=== PATIENT | male | born 1985 | race Caucasian/White ===

== ENCOUNTER 2025-07-15 22:42 | Emergency (ER) | payer OTHER, SELFPAY ==
[2025-07-15 22:43] VITALS: BP 155/80; PULSE 84; RESP 18; TEMP 36.8; O2SAT 99
[2025-07-15 22:58] VITALS: BMI 42.3
--- NOTE | 2025-07-15 23:00 | RAD_ITS ---
PROCEDURE: RAD/Tibia & Fibula 2 Views
--- NOTE | 2025-07-15 23:00 | RAD_ITS ---
PROCEDURE: RAD/Femur Min 2 Views
--- NOTE | 2025-07-15 23:06 | RAD_ITS ---
PROCEDURE: RAD/Femur Min 2 Views
--- NOTE | 2025-07-15 23:07 | RAD_ITS ---
PROCEDURE: RAD/Tibia & Fibula 2 Views
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
[2025-07-15] MEDS: Ketorolac 30 MG/ML Syringe IM (23:34)
[2025-07-16 00:32] VITALS: BP 148/60; PULSE 84; RESP 18; TEMP 36.8; O2SAT 99
== END 2025-07-16 00:33 | disposition home or self-care (01) ==
PROVIDERS: Emergency Provider Specialist/Technologist Athletic Trainer; PCP Family Medicine; Visit Provider Specialist/Technologist Athletic Trainer
DX: S70.12XA Contusion of left thigh, initial encounter (principal); S70.11XA Contusion of right thigh, initial encounter; S80.12XA Contusion of left lower leg, initial encounter; S80.11XA Contusion of right lower leg, initial encounter; V48.2XXA Person on outside of car injured in noncollision transport accident in nontraffic accident, initial encounter; Y93.89 Activity, other specified; Y92.481 Parking lot as the place of occurrence of the external cause; Z87.891 Personal history of nicotine dependence
CPT/HCPCS: 73552; 73590; 96372; 99282

== ENCOUNTER 2025-07-17 18:03 | Emergency (ER) | payer OTHER, SELFPAY ==
[2025-07-17 18:04] VITALS: BP 167/97; PULSE 78; RESP 18; TEMP 35.7; O2SAT 100; BMI 43.0
--- NOTE | 2025-07-17 18:52 | CT_ITS ---
PROCEDURE: CT/Spine Lumbar without Contrast
[2025-07-17 20:09] VITALS: BP 152/71; PULSE 65; RESP 18; TEMP 36.9; O2SAT 97
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
== END 2025-07-17 20:40 | disposition home or self-care (01) ==
PROVIDERS: Emergency Provider Emergency Medicine; PCP Family Medicine; Visit Provider Emergency Medicine
DX: S39.012A Strain of muscle, fascia and tendon of lower back, initial encounter (principal); S30.0XXA Contusion of lower back and pelvis, initial encounter; V48.2XXA Person on outside of car injured in noncollision transport accident in nontraffic accident, initial encounter; G47.30 Sleep apnea, unspecified; K21.9 Gastro-esophageal reflux disease without esophagitis; Z87.891 Personal history of nicotine dependence
CPT/HCPCS: 72131; 99282

== ENCOUNTER 2025-08-02 20:37 | Emergency (ER) | payer OTHER, SELFPAY ==
[2025-08-02 20:37] VITALS: BP 178/119; PULSE 90; RESP 14; TEMP 36.8; O2SAT 97; BMI 42.3
[2025-08-02 21:16] LABS: Mucous, Urine 0 SEEN /hpf (<or=2+)
--- OUTSIDE RECORDS SUMMARY | 2025-08-02 21:26 | XMS RPT_ITS | CCD ---
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 I, HIGH SENSITIVITY on 02-03-2025 TROPONIN I, HIGH SENSITIVITY 4 pg/mL 0 - 20 pg/mL [facility] Comment on above: Indeterminant: >12 to 100 pg/mL female >20 to 100 pg/mL male Indicative of myocardial injury. Serial sampling is recommended, a change of greater than or equal to 20 pg/mL is indicative of acute coronary syndrome. [facility] TROPONIN I, HIGH SENSITIVITY 4 pg/mL Normal 0-20 [facility]3] Comment on above: Result Comment: Indeterminant: >12 to 100 pg/mL female >20 to 100 pg/mL male Indicative of myocardial injury. Serial sampling is recommended, a change of greater than or equal to 20 pg/mL is indicative of acute coronary syndrome. Performed By: #### T ROHS #### Testing performed at [facility] ([facility])[3] [address] [place] [address] XR CHEST PA AND LATERAL 2 EWSon 02-03-2025 XR CHEST PA AND LATERAL 2 VIEWS EXAM: XR CHEST PA AND LATERAL 2 VIEWS HISTORY: chest tightness COMPARISON: None. TECHNIQUE: Upright PA and lateral views. FINDINGS: The heart is slender. The trachea, mediastinal, and hilar appearance is thought to be satisfactory. Both lungs are relatively well aerated. There is some minor lobulation of the right hemidiaphragm. I do not see any specific infiltrate, edema, or pleural effusion. There is no pneumothorax, pulmonary nodularity, or mass. IMPRESSION: No acute chest finding is seen. Normal [facility]3] XR Chest PA and Lateralon IMPRESSION: No acute chest finding is seen. RADIOLOGY EXAM: XR CHEST PA AN D LATERAL 2 VIEWS HISTORY: chest tightness COMPARISON: None. TECHNIQUE: Upright PA and lateral views. FINDINGS: The heart is slender. The trachea, mediastinal, and hilar appearance is thought to be satisfactory. Both lungs are relatively well aerated. There is some minor lobulation of the right hemidiaphragm. I do not see any specific infiltrate, edema, or pleural effusion. There is no pneumothorax, pulmonary nodularity, or mass. RADIOLOGY Senia Dolan, - 02/03/2025 EXAM: XR CHEST PA AND LATERAL 2 VIEWS HISTORY: chest tightness COMPARISON: None. TECHNIQUE: Upright PA and lateral views. FINDINGS: The heart is slender. The trachea, mediastinal, and hilar appearance is thought to be satisfactory. Both lungs are relatively well aerated. There is some minor lobulation of the right hemidiaphragm. I do not see any specific infiltrate, edema, or pleural effusion. There is no pneumothorax, pulmonary nodularity, or mass. IMPRESSION IMPRESSION: No acute chest finding is seen. [facility] Radiology Study observation (narrative) [facility] XR Chest PA and LateralOrder ed By: Senia Dolan on 02-03-2025 [facility] MEDIUM JOINT/BURSA INJECTION AND/OR ASPIRATION: L ulnocarpalon 12-29-2024 Evelyn Salazar LP N 12/29/2024 4:33 PM MEDIUM JOINT/BURSA INJECTION AND/OR ASPIRATION: L ulnocarpal Date/Time: 12/29/2024 3:00 PM Performed by: Marcello Quiles MD Authorized by: Marcello Quiles MD Supporting Documentation Indications: pain Procedure Details: Location: wrist - L ulnocarpal Needle size: 25 G Approach: ulnar Medication Verification: I have personally verified and performed the final check of the medication(s) used in this procedure prior to administration. The following items were included during the verification process for medication(s) administered: drug name, strength, volume, expiration, physical integrity and appearance of the medication(s). Medications administered: 40 mg methylPREDNISolone acetate 40 MG/ML; 2 mL Lidocaine 10 mg/mL; 2 mL ROPivacaine 1 % Patient tolerance: patient tolerated the procedure well with no immediate complications Consent: Consent was obtained prior to the procedure after discussion of the risks, benefits and alternatives, and expected outcomes were discussed with the patient. The possibilities of reaction to medication, bleeding, infection, the need for additional procedures, failure to diagnosis a condition, and creating a complication requiring operation were discussed with the patient. The patient concurred with the proposed plan, giving consent. (Informed consent is obtained. Risks and benefits have been discussed. The patient understands and wishes to proceed. ) Preparation: Patient was prepped in the usual sterile fashion. The patient was prepped with alcohol. [facility] Radiology Study observation (narrative) [facility] MR Wrist - left WO contrasto n 10-09-2024 IMPRESSION: 1. No acute osseous abnormality of the left wrist. 2. Mild ulnar positive variance the left wrist. There is associated thinning of the radial aspect of the left trigonal fibrocartilage. There is fluid within the left distal radioulnar joint. The left dorsal and volar radioulnar ligaments are intact. 3. Intact left knee scapholunate and lunotriquetral ligaments. 4. Very trace tenosynovitis of the left second extensor compartment at the level of the distal radius. RADIOLOGY EXAM: MRI WRIST LEFT WITHOUT CONTRAST HISTORY: chronic left wrist pain, xrays negative . Left wrist pain. COMPARISON: Comparison made to left wrist radiographs dated 07/20/2023. TECHNIQUE: Multiplanar, multisequence imaging of the left wrist was performed without the administration of intravenous or intra-articular gadolinium contrast. FINDINGS: There is mild ulnar positive variance of the left wrist. There is no acute displaced fracture or dislocation of the left wrist. There is minimal left first carpometacarpal joint osteoarthritis. Bone marrow signal is normal. The scapholunate and lunotriquetral ligaments are intact. There is thinning of the radial aspect of the left triangular fibrocartilage. The dorsal and volar radioulnar ligaments are intact. There is fluid within the left distal radioulnar joint. The flexor tendons of the left wrist, including those intrinsic to and extrinsic to the carpal tunnel, are normal without tendinopathy, tenosynovitis, or tear. There is very trace tenosynovitis of the left second extensor compartment at the level of the distal radius. The remaining extensor compartments of the wrist are normal. The median nerve within the carpal tunnel and the ulnar nerve within the Guyon's canal are normal. [facility] - 10/09/[facility]24 EXAM: MRI WRIST LEFT WITHOUT CONTRAST HISTORY: chronic left wrist pain, xrays negative . Left wrist pain. COMPARISON: Comparison made to left wrist radiographs dated 07/20/2023. TECHNIQUE: Multiplanar, multisequence imaging of the left wrist was performed without the administration of intravenous or intra-articular gadolinium contrast. FINDINGS: There is mild ulnar positive variance of the left wrist. There is no acute displaced fracture or dislocation of the left wrist. There is minimal left first carpometacarpal joint osteoarthritis. Bone marrow signal is normal. The scapholunate and lunotriquetral ligaments are intact. There is thinning of the radial aspect of the left triangular fibrocartilage. The dorsal and volar radioulnar ligaments are intact. There is fluid within the left distal radioulnar joint. The flexor tendons of the left wrist, including those intrinsic to and extrinsic to the carpal tunnel, are normal without tendinopathy, tenosynovitis, or tear. There is very trace tenosynovitis of the left second extensor compartment at the level of the distal radius. The remaining extensor compartments of the wrist are normal. The median nerve within the carpal tunnel and the ulnar nerve within the Guyon's canal are normal. IMPRESSION IMPRESSION: 1. No acute osseous abnormality of the left wrist. 2. Mild ulnar positive variance the left wrist. There is associated thinning of the radial aspect of the left trigonal fibrocartilage. There is fluid within the left distal radioulnar joint. The left dorsal and volar radioulnar ligaments are intact. 3. Intact left knee scapholunate and lunotriquetral ligaments. 4. Very trace tenosynovitis of the left second extensor compartment at the level of the distal radius. [employer] MR Wrist - left WO contrastO rdered By: Josh Root on 10-09-2024 [employer] Work Phone: MRI WRIST LEFT WITHOUT CONTR Lino 10-09-2024 MRI WRIST LEFT WITHOUT CONTRAST EXAM: MRI WRIST LEFT WITHOUT CONTRAST HISTORY: chronic left wrist pain, xrays negative . Left wrist pain. COMPARISON: Comparison made to left wrist radiographs dated 07/20/2023. TECHNIQUE: Multiplanar, multisequence imaging of the left wrist was performed without the administration of intravenous or intra-articular gadolinium contrast. FINDINGS: There is mild ulnar positive variance of the left wrist. There is no acute displaced fracture or dislocation of the left wrist. There is minimal left first carpometacarpal joint osteoarthritis. Bone marrow signal is normal. The scapholunate and lunotriquetral ligaments are intact. There is thinning of the radial aspect of the left triangular fibrocartilage. The dorsal and volar radioulnar ligaments are intact. There is fluid within the left distal radioulnar joint. The flexor tendons of the left wrist, including those intrinsic to and extrinsic to the carpal tunnel, are normal without tendinopathy, tenosynovitis, or tear. There is very trace tenosynovitis of the left second extensor compartment at the level of the distal radius. The remaining extensor compartments of the wrist are normal. The median nerve within the carpal tunnel and the ulnar nerve within the Guyon's canal are normal. IMPRESSION: 1. No acute osseous abnormality of the left wrist. 2. Mild ulnar positive variance the left wrist. There is associated thinning of the radial aspect of the left trigonal fibrocartilage. There is fluid within the left distal radioulnar joint. The left dorsal and volar radioulnar ligaments are intact. 3. Intact left knee scapholunate and lunotriquetral ligaments. 4. Very trace tenosynovitis of the left second extensor compartment at the level of the distal radius. Normal [facility]3] MR Wrist - left WO contrasto n 10-08-2024 Radiology Study observation (narrative) [facility] CBCon 08-28-2024 ABSOLUTE BAS 0.0 10*3/uL Normal 0.0-0.2 [facility] Comment on above: Performed By: #### C MPF, LIP2, ACBC, URIC #### Testing performed at [address] [address] ABSOLUTE EOS 0.2 10*3/uL Normal 0.0-0.7 [facility] Comment on above: Performed By: #### C MPF, LIP2, ACBC, URIC #### Testing performed at [address] [address] ABSOLUTE NEUTROPHIL COUNT 4.2 10*3/uL Normal 1.4-6.5 [facility]3] Comment on above: Performed By: #### C MPF, LIP2, ACBC, URIC #### Testing performed at [address] [address] Basophils/100 WBC (Bld) 0.5 % Normal 0.0-2.0 [facility]3] Comment on above: Performed By: #### C MPF, LIP2, ACBC, URIC #### Testing performed at [address] [address] DTYPE AUTO DIFF Normal [facility]3] Comment on above: Performed By: #### C MPF, LIP2, ACBC, URIC #### Testing performed at [address] [address] Eosinophils/100 WBC (Bld) 2.7 % Normal 0.0-11.0 [facility]3] Comment on above: Performed By: #### C MPF, LIP2, ACBC, URIC #### Testing performed at [address] [address] Lymphocytes (Bld) [#/Vol] 2.4 10*3/uL Normal 1.2-3.4 [facility]3] Comment on above: Performed By: #### C MPF, LIP2, ACBC, URIC #### Testing performed at [address] [address] Lymphocytes/100 WBC (Bld) 32.8 % Normal 20.0-55.0 [facility]3] Comment on above: Performed By: #### C MPF, LIP2, ACBC, URIC #### Testing performed at [address] [address] Monocytes (Bld) [#/Vol] 0.5 10*3/uL Normal 0.0-0.7 [facility]3] Comment on above: Performed By: #### C MPF, LIP2, ACBC, URIC #### Testing performed at [address] [address] Monocytes/100 WBC (Bld) 7.2 % Normal 0.0-10.0 [facility]3] Comment on above: Performed By: #### C MPF, LIP2, ACBC, URIC #### Testing performed at [address] [address] Neutrophils/100 WBC (Bld) 56.8 % Normal 37.0-75.0 [facility]3] Comment on above: Performed By: #### C MPF, LIP2, ACBC, URIC #### Testing performed at [address] [address] Erythrocyte distribution width (RBC) [Ratio] 13.5 % Normal 11.5-14.5 [facility]3] Comment on above: Performed By: #### C MPF, LIP2, ACBC, URIC #### Testing performed at [address] [address] Hematocrit (Bld) [Volume fraction] 48.1 % Normal 42.0-52.0 [facility]3] Comment on above: Performed By: #### C MPF, LIP2, ACBC, URIC #### Testing performed at [address] [address] Hemoglobin (Bld) [Mass/Vol] 16.1 g/dL Normal 14.0-18.0 [facility]3] Comment on above: Performed By: #### C MPF, LIP2, ACBC, URIC #### Testing performed at [address] [address] MCH (RBC) [Entitic mass] 28.8 pg Normal 26.0-35.0 [facility]3] Comment on above: Performed By: #### C MPF, LIP2, ACBC, URIC #### Testing performed at [address] [address] MCHC (RBC) [Mass/Vol] 33.5 g/dL Normal 27.0-37.0 [facility] Comment on above: Performed By: #### C MPF, LIP2, ACBC, URIC #### Testing performed at [address] [address] MCV (RBC) [Entitic vol] 86.1 fL Normal 80.0-100.0 [facility]3] Comment on above: Performed By: #### C MPF, LIP2, ACBC, URIC #### Testing performed at [address] [address] Platelet mean volume (Bld) [Entitic vol] 8.5 fL Normal 7.4-11.0 [facility] Comment on above: Performed By: #### C MPF, LIP2, ACBC, URIC #### Testing performed at [address] [address] Platelets (Bld) [#/Vol] 236 10*3/uL Normal 130-400 [facility]3] Comment on above: Performed By: #### C MPF, LIP2, ACBC, URIC #### Testing performed at [address] [address] RBC (Bld) [#/Vol] 5.59 10*6/uL Normal 4.0-6.1 [facility]3] Comment on above: Performed By: #### C MPF, LIP2, ACBC, URIC #### Testing performed at [address] [address] WBC (Bld) [#/Vol] 7.4 10*3/uL Normal 3.6-11.0 [facility]3] Comment on above: Performed By: #### C MPF, LIP2, ACBC, URIC #### Testing performed at [address] [address] CMP FASTINGon 08-28-2024 A:G RATIO 1.7 RATIO Normal [facility]3] Comment on above: Performed By: #### C MPF, LIP2, ACBC, URIC #### Testing performed at [address] [address] ALBUMIN 4.6 G/dl Normal 3.5-5.0 [facility]3] Comment on above: Performed By: #### C MPF, LIP2, ACBC, URIC #### Testing performed at [address] [address] ALP [Catalytic activity/Vol] 38 U/L Normal 38-126 [facility]3] Comment on above: Performed By: #### C MPF, LIP2, ACBC, URIC #### Testing performed at [address] [place] [address] ALT [Catalytic activity/Vol] 65 U/L High <50 [facility]3] Comment on above: Performed By: #### C MPF, LIP2, ACBC, URIC #### Testing performed at [address] [place] [address] AST [Catalytic activity/Vol] 37 U/L Normal 17-59 [facility]3] Comment on above: Performed By: #### C MPF, LIP2, ACBC, URIC #### Testing performed at [address] [address] Bilirubin [Mass/Vol] 1.7 mg/dL High 0.2-1.3 [facility] Comment on above: Performed By: #### C MPF, LIP2, ACBC, URIC #### Testing performed at [address] [address] Calcium [Mass/Vol] 9.4 mg/dL Normal 8.4-10.2 [facility]3] Comment on above: Performed By: #### C MPF, LIP2, ACBC, URIC #### Testing performed at [place] [id number] Chloride [Moles/Vol] 108 mmol/L High 98-107 [facility] Comment on above: Result Comment: Inés pavon note: Triglyceride levels of 600mg/dL or higher may positively bias chloride results by approximately 2.1 mmol Performed By: #### C MPF, LIP2, ACBC, URIC #### [place] [address] CO2 [Moles/Vol] 26 mmol/L Normal 22-30 [facility] Comment on above: Performed By: #### C MPF, LIP2, ACBC, URIC #### [place] [address] Creatinine [Mass/Vol] 0.81 mg/dL Normal 0.70-1.20 [facility] Comment on above: Performed By: #### C MPF, LIP2, ACBC, URIC #### Testing performed at [place] [id number] EST. GFR, 138 ml/min/1.73sq.m [facility] Comment on above: Performed By: #### C MPF, LIP2, ACBC, URIC #### Testing performed at [place] [id number] EST. GFR,Non 114 ml/min/1.73sq.m [facility] Comment on above: Performed By: #### C MPF, LIP2, ACBC, URIC #### Testing performed at [address] [address] GFR Information Average GFR for 30-3 9 years old = 107. Normal [facility]3] Comment on above: Result Comment: Shuttle Spotter andrea Kidney disease, GFR = <60. Kidney failure, GFR = <15. The GFR estimate is not adjusted for extreme body surface area or acute process, nor has it been validated for women or ethnic groups other than and . Performed By: #### C MPF, LIP2, ACBC, URIC #### Testing performed at [place] [id number] Glucose [Mass/Vol] 118 mg/dL High 70-100 [facility]3] Comment on above: Result Comment: NORMAL <100 mg/dL PREDIABETES 101-126 mg/dL DIABETES 126 mg/dL or higher Performed By: #### C MPF, LIP2, ACBC, URIC #### Testing performed at [address] [address] Potassium [Moles/Vol] 4.4 mmol/L Normal 3.5-5.1 [facility] Comment on above: Performed By: #### C MPF, LIP2, ACBC, URIC #### Testing performed at [address] [address] Protein [Mass/Vol] 7.3 g/dL Normal 6.3-8.2 [facility]3] Comment on above: Performed By: #### C MPF, LIP2, ACBC, URIC #### Testing performed at [address] [address] Sodium [Moles/Vol] 138 mmol/L Normal 137-145 [facility]3] Comment on above: Performed By: #### C MPF, LIP2, ACBC, URIC #### Testing performed at [address] [address] Urea nitrogen [Mass/Vol] 9 mg/dL Normal 7-20 [facility]3] Comment on above: Performed By: #### C MPF, LIP2, ACBC, URIC #### Testing performed at [address] [address] HEMOGLOBIN A1Con 08-28-2024 Glucose [Mass/Vol] 117 mg/dL Normal [facility]3] Comment on above: Performed By: #### H A1CT #### Testing performed at [address] [address] HbA1c (Bld) [Mass fraction] 5.7 % Normal 0-6 [facility]3] Comment on above: Result Comment: NORMAL <5.7% PREDIABETES 5.7-6.4% DIABETES 6.5% OR HIGHER Performed By: #### H A1CT #### Testing performed at [address] [address] LIPID PROFILEon 08-28-2024 Cholesterol [Mass/Vol] 141 mg/dL Normal 120-200 [facility] Comment on above: Performed By: #### C MPF, LIP2, ACBC, URIC #### Testing performed at [address] [address] Cholesterol in HDL [Mass/Vol] 48 mg/dL Normal 26-63 [facility]3] Comment on above: Performed By: #### C MPF, LIP2, ACBC, URIC #### Testing performed at [address] [address] Cholesterol in LDL [Mass/Vol] 81 mg/dL Normal <100 [facility]3] Comment on above: Performed By: #### C MPF, LIP2, ACBC, URIC #### Testing performed at [address] [address] Cholesterol in VLDL [Mass/Vol] 12 mg/dL Normal 5-25 [facility]3] Comment on above: Performed By: #### C MPF, LIP2, ACBC, URIC #### Testing performed at [address] [address] Cholesterol.total/Chol esterol in HDL [Mass ratio] 2.94 {ratio} Normal [facility] (Formerly [facility])[3] Comment on above: Result Comment: RISK TOTAL/HDL RATIO MEN WOMEN 1/2 AVERAGE 3.43 3.27 AVERAGE 4.97 4.44 2X AVERAGE 9.55 7.05 3X AVERAGE 23.99 11.04 Performed By: #### C MPF, LIP2, ACBC, URIC #### Testing performed at [address] [address] Triglyceride [Mass/Vol] 61 mg/dL Normal 0-150 [facility] ([facility])[3] Comment on above: Performed By: #### C MPF, LIP2, ACBC, URIC #### Testing performed at [address] [address] URIC ACIDon 08-28-2024 Urate [Mass/Vol] 6.7 mg/dL Normal 3.5-8.5 [facility] Comment on above: Performed By: #### C MPF, LIP2, ACBC, URIC #### Testing performed at [address] [address] Clinical Event Note-Post ED Discharge Follow-Up: COVID swabon 05-16-2021 SARS-CoV-2 (COVID-19) Ab IA Ql Clinical Event: Clinical Event Note: TopicPost ED Discharge Follow-Up: COVID swab 05/15/21 Details Post ED Discharge Follow-Up: 05/16/21 1249 Voicemail left at [phone] Call placed to notify patient of positive COVID 19 result. Deanna Briones RN 05/17/21 1215 Patient notified by ED RN on 05/15 Mya MATTHEW Electronic Signatures: Sujey Keys (RN) (Signed 16-May-2021 12:50) Authored: Clinical Event Note Zofia Solo (TIFF) (Signed 17-May-2021 12:16) Authored: Clinical Event Note Last Updated: 17-May-2021 12:16 by Zofia Solo (TIFF) Normal [facility] CHEST 1 VIEWon 05-15-2021 CHEST 1 VIEW Patient Name: AUSTEN MORRISON STUDY: CHEST 1 VIEW; 05/14/2021 11:35 pm INDICATION: covid. COMPARISON: 12/04/2018 ACCESSION NUMBER(S): [id number] ORDERING CLINICIAN: DAPHNIE LISA FINDINGS: The cardiomediastinal silhouette and pulmonary vasculature are within normal limits. No consolidation, pleural effusion, or pneumothorax. IMPRESSION: No acute cardiopulmonary process. Electronically signed by: AARON ESPINOZA MD Normal [facility] CORONAVIRUS 2019 BY PCRon SARS-CoV-2 (COVID-19) RNA OLESYA+probe Ql (Unsp spec) Detected Abnormal Not Detected [facility] Comment on above: Order Comment: Kalani BARRAZA to Aleena Guerrero , 05/15/2021 05:23 Result Comment: . This test has received FDA Emergency Use Authorization (EUA) and has been verified by [facility]. This test is only authorized for the duration of time that circumstances exist to justify the authorization of the emergency use of in vitro diagnostic tests for the detection of SARS-CoV-2 virus and/or diagnosis of COVID-19 infection under section 564(b)(1) of the Act, 21 U.S.C. 360bbb-3(b)(1), unless the authorization is terminated or revoked sooner. [facility] is certified under CLIA-88 as qualified to perform high complexity testing. Testing is performed in the [facility] laboratory located at [address] [place] [address]. SARS-CoV-2/Flu/RSV Multiplex Test: Fact sheet for providers: https://www.fda.gov/media/816007/download Fact sheet for patients: https://www.fda.gov/media/531080/download Called- RB to Aleena Guerrero , 05/15/2021 05:23 Performed By: #### C OV19 #### [place] [address] Lab Specimen Source Nasal, Nasopharyngeal [facility] Comment on above: Order Comment: Uriarte d- RB to Aleena Guerrero , 05/15/2021 05:23 Performed By: #### C OV19 #### [place] [address] DATE OF SYMPTOM ONSET [[id number]]? [id number] [facility] Comment on above: Order Comment: Uriarte d- RB to Aleena Guerrero , 05/15/2021 05:23 Performed By: #### C OV19 #### [place] [address] Clinical Event Note-COVID 19 Resultson 05-15-2021 Clinical Event Note-COVID 19 Results Clinical Event: Clinical Event Note: TopicCOVID 19 Results Details Pt called in, notified and aware of positive COVID 19 result. Electronic Signatures: Aleena Montelongo (TIFF) (Signed 15-May-2021 08:44) Authored: Clinical Event Note Last Updated: 15-May-2021 08:44 by Aleena Montelongo) [facility] Covid 19 Resultson SARS-CoV-2 (COVID-19) RNA OLESYA+probe Ql (Unsp spec) POSITIVE COVID-19 Test Coronaviruses are common world-wide and are the cause of many common colds. SARS-COV2 is a new coronavirus that began circulating worldwide in 2019 so we are calling it COVID-19. It has been estimated that four out of five patients with COVID-19 will recover at home without the need for medical attention. Symptoms of COVID-19 may include cough, fever, shortness of breath, loss of taste or smell and other flu-like symptoms including chills, sore muscles, sore throat, and headache. Severe illness is more common in older people and people with other health problems such as high blood pressure, obesity, and immune system problems. If the test is positive, you have COVID-19. You will be contacted by the ordering physicians office and instructed to remain on home isolation, in accordance with CDC guidelines. You may also be contacted by the [facility] to see if any of your close contacts may have been exposed to the virus and need to quarantine. If the test is negative, you likely do not have COVID-19 at this time, but you still may have a different illness that can spread to other people (like Influenza, or the Flu) and could still be at risk for getting COVID-19. We recommend that you stay away from other people to limit the spread of illness until your symptoms are improving and you are fever-free for 24 hours without the use of fever lowering medications such as acetaminophen or ibuprofen. No test is 100% accurate so if you are still concerned you may have COVID-19, talk to your doctor about the need to continue to stay away from others. Medicines Unless your provider told you not to use the following: Acetaminophen (Tylenol and others) is generally safe. Anti-inflammatory medications, such as Ibuprofen (Advil or Motrin) or Naproxen (Aleve) can also be used. Wmzf-eqi-egrookv cough and cold medicines can be used according to the instructions on the package. Some owql-cjd-conpbeo medicines also contain acetaminophen. Make sure you are not taking more than your recommended dose. For those not hospitalized, there is no specific treatment available for this illness. Antibiotics do not treat Coronaviruses. Follow-Up Follow up with your doctor by scheduling a virtual visit or consider follow-up at one of our urgent care fever clinics. If you are having difficulty breathing, or are very weak and having difficulty standing, this is a medical emergency. Call 911 or have someone take you to the nearest emergency room immediately. If possible, wear a facemask. Additional guidance from the CDC for patients who tested POSITIVE for COVID-19 How to isolate: Isolate yourself in a specific room at home and limit your contact with others. Use a separate bathroom from other members of the household, when possible. Leave home only to get essential medical care. Do not go to work, school or public areas. Avoid using public transportation, ride-sharing, or taxis. Restrict contact with pets and other animals. If you must care for your pet or be around animals while you are sick, wash your hands before and after your interaction and wear a facemask. Make sure that shared spaces in the home have good airflow, such as by an air conditioner or an opened window, weather permitting. Personal Hygiene Procedures: Wear a face mask when in the same room as other people or pets. If a face mask interferes with your breathing, others should wear a mask when sharing space with you. Frequent hand-washing: wash your hands with soap and water for at least 20 seconds. If soap and water are not available, use alcohol-based hand finance accounting internship. Avoid touching your eyes, nose, and mouth with unwashed hands. Household Hygiene Procedures: Avoid sharing personal household items such as dishes, glassware, cups, eating utensils, towels or bedding with other people or pets in your home. After use, these items should be washed with soap and hot water. Disinfect all high-touch surfaces every day with antibacterial cleaning solutions such as Lysol wipes, bleach, cleansers, etc. High-touch surfaces include tabletops, doorknobs, bathroom fixtures, toilets, phones, keyboards, tablets and bedside tables. Immediately clean any surfaces that may have blood, poop or body fluids on them, using antibacterial cleaning solutions such as Lysol wipes, bleach, cleansers, etc. If clothing or bedding come into contact with blood, poop or body fluids, they should be washed immediately. Follow the directions on the laundry detergent and clothing labels but hot water is recommended when possible. Stopping home isolation precautions: If possible, consult your doctor before stopping home isolation precautions. According to the CDC, you can discontinue home isolation precautions when you have met both of these criteria: Your fever and respiratory symptoms have been gone for 24 srinivas (more content not included)... [facility] Provider Note - ED v2on -0 Provider Note - ED v2 Provider Note - ED v2: Chart Review: ED NOTES ED NOTES: 35-year-old male presents with 3 to 4-day history of cough and congestion. Patient did have exposure to Covid. Patient states tonight around 4:00 he did a Covid test at home which was positive. Patient has repetitive coughing here in the department. Patient denies any nausea vomiting or diarrhea. I indicated to the patient we would repeat the testing and call him with the results. Patient will be given a shot of Solu-Medrol 125 mg in discharge. Patient's vital signs are stable here in the department. HISTORY OF PRESENTING ILLNESS AUSTEN is a 35 year old Male and was seen by me at 14-May-2021 23:26 for a chief complaint of shortness of breath (Patient ambulatory to ED with c/o shortness of breath and chest tightness today. Reports took home COVID 19 test and it was positive. Admits to feeling fatigued x 2-3 days but attributed to working 60 hrs in 4 days. Denies measured fever.)(1). The historian is the patient. Triage Information: Most recent Vital Sign Value Date Temp (F): 97.6 05-14-2021 23:20 Temp (C): 36.4 05-14-2021 23:20 Heart Rate (beats/min): 113 05-14-2021 23:20 Respirations (breaths/min): 24 05-14-2021 23:20 SpO2 (%): 98 05-14-2021 23:20 BP Systolic (mm Hg): 154 05-14-2021 23:20 BP Diastolic (mm Hg): 100 05-14-2021 23:20 PAST MEDICAL HISTORY ATTESTATION: I have reviewed and confirmed nurse's/medic's notes for patient's medications, allergies, and medical, surgical, family and social history ALLERGIES/INTOLERANCES : Allergy Allergen: sulfa drugs Type: Drug Category Reaction: Unknown HEALTH HISTORY: No documented data. OUTPATIENT MEDICATIONS: Home Medications Review Status for Reconciliation: Complete Med Status: Patient Currently Takes Medications Drug Name: allopurinol 100 mg oral tablet Instructions: 1 tab(s) orally 2 times a day Drug Name: omeprazole 20 mg oral delayed release capsule Instructions: 1 cap(s) orally once a day SIGNIFICANT EVENTS: Past Medical History Description:Hypertensi on Description:Gout Description:LYNDA on CPAP Description:GERD REVIEW OF SYSTEMS CONSTITUTIONAL: POSITIVE for: malaise and weakness RESPIRATORY: POSITIVE for: cough RESULTS/VITAL SIGNS RESULTS: Radiology Results: Impression: No acute cardiopulmonary process. Xray Chest 1 View [May 14 2021 11:48PM] VITAL SIGNS: T PRBP SpO2O2(LPM) %FiO2 Method 15-May-2021 00:00:[id number] 98 room air, no respiratory support 14-May-2021 23:20:[id number]/ 100 98 room air, no respiratory support 14-May-2021 23:18:[id number]/ 100 98 room air, no respiratory support PHYSICAL EXAM CONSTITUTIONAL: Well appearing, well nourished, awake, alert, oriented to person, place, time/situation and in no apparent distress. HENMT: Airway patent, ears with clear tympanic membranes bilaterally. Nasal mucosa clear. Mouth with normal mucosa. Throat has no vesicles, no oropharyngeal exudates and uvula is midline. Face with no lymph node enlargement. EYES: Clear bilaterally, pupils equal, round and reactive to light. CARDIOVASCULAR: Normal rate, regular rhythm. Heart sounds S1, S2. No murmurs, rubs or gallops. PMI non-displaced. RESPIRATORY: Breath sounds clear and equal bilaterally. GASTROINTESTINAL: Abdomen soft, non-distended, no rebound, no guarding. Bowel sounds normal in all 4 quadrants. GENITOURINARY: No discharge, no lesions. MUSCULOSKELETAL: Spine appears normal, range of motion is not limited, no muscle or joint tenderness. NEUROLOGICAL: Alert and oriented, no focal deficits, no motor or sensory deficits. SKIN: Skin normal color for race, warm, dry and intact. No evidence of trauma. PSYCHIATRIC: Alert and oriented to person, place, time/situation. normal mood and affect. No apparent risk to self or others. HEME/LYMPH: No adenopathy or splenomegaly. No cervical, supraclavicular or inguinal lymphadenopathy. CLINICAL IMPRESSION Diagnosis/Annotation: ED Dx Name:Viremia due to severe acute respiratory syndrome coronavirus 2 (SARS-CoV-2) Code:U07.1 Disposition: discharged Type: home ATTESTATION Comments/Additional Findings: 1 Take medication as prescribed 2 quarantine for 14 days 3 if worse return to ED. CRITICAL CARE TIME Is this a critically ill patient: no Electronic Signatures: Daphnie Lisa () (Signed 15-May-2021 00:57) Authored: ED Notes, HPI, PMH, ROS, PE, Results/Vital Signs, Clinical Impression, Attestation, Chart Review, Scores Last Updated: 15-May-2021 00:57 by Daphnie Lisa () References: 1. Data Referenced From Triage - ED 14-May-2021 23:20 [facility] Risk Screen - Adult Emergenc yon 05-15-2021 Risk Screen - Adult Emergency Preferred Language: Preferred Language: Preferred Language for Discussing Health Care (patient/designee)Engl josefina Advanced Directives: Advance Directive/DNRyes Advance Directive typeLiving Will, Durable Power of Ophthalmic Medical Technologist for Healthcare Living Will AvailabilityLiving Will not available now Durable Power of Ophthalmic Medical Technologist AvailabilityDPOA not available now Family Violence Adult: Abuse Screen: Are you or have you been threatened or abused physically, emotionally, or sexually by anyoneno Learning Assessment (Patient): Learning Assessment (Patient): Patient is Able to be Assessed for Learningyes Factors Influencing Readiness to Learnacuteness of illness Factors that Impact Ability to Learnvisual problems Devices/Methods Used to Communicateglasses Learning Preferencesverbal instruction; written material Cultural Considerationsnone Developmental Considerationsnone Samaritan Considerationsnone Learning Assessment (Other Learner): Learning Assessment (Other Learner): Other learner availableno Pressure Injury/TB/Substance: Pressure Injury: Do you have a coughyes... Has your cough lasted longer than 2 weeksno Smoking Statusformer smoker Alcohol Usedenies Drug Usedenies Admission Risk Screen: Significant IndicatorsComplete CAGE: CAGE: [place] [place] no Electronic Signatures: Maggy Baeza) (Signed 14-May-2021 23:26) Authored: Preferred Language, Advanced Directives, Family Violence Adult, Learning Assessment (Patient), Learning Assessment (Other Learner), Pressure Injury/TB/Substance, Pressure Injury, CAGE Last Updated: 14-May-2021 23:26 by Maggy Baeza (TIFF) [facility] Triage - EDon 05-15-2021 Triage - ED Quick Triage: The patient and/or guardian verbally acknowledges placement for services into the following (when Urgent Care Service hours are operating):emergency department Chart Review: ARRIVAL INFORMATION Means of Arrival: Ambulatory Mode of Arrival: private vehicle Arrival From: home Accompanied By: self Language: Spoken Language Preferred: Irish Reading Language Preferred: Irish Specialist Icu Requested: no cell attendant helper was requested Present on Arrival: Device Present on Arrival to ED: no CHIEF COMPLAINT AUSTEN MORRISON is a Male patient with a chief complaint of shortness of breath (Patient ambulatory to ED with c/o shortness of breath and chest tightness today. Reports took home COVID 19 test and it was positive. Admits to feeling fatigued x 2-3 days but attributed to working 60 hrs in 4 days. Denies measured fever.). Triage Date/Time: 14-May-2021 23:21 IRWIN: 3 Pain Rating (0-10): 4 = Moderate Pain location: chest tightness Vital Signs: Temperature: 97.6F ( 36.4C) taken temporal Blood Pressure: 154/100 Mean: 114 Heart Rate: 113 Respiratory Rate: 24 Pulse Oximetry: 98% on room air, no respiratory support. Height: 5 feet 11 inches. 180.3 CM Weight: 320.7 pounds. Calculated 145.5 kg. (stated) Calculated BMI (kg/m2): 44.758 Calculated BSA (m2) 2.70 Christen Coma Scale: Best Eye Response: (E4) spontaneous Best Motor Response: (M6) obeys commands Best Verbal Response: (V5) oriented Christen Score: 15 Cough lasting greater than 3 weeks: no Allergies: yes Mask applied: yes Patient has homicidal thoughts: no Symptoms Are POSITIVE For: body aches, chest pain, chills, congestion, cough, diaphoresis, dyspnea and headache. Symptoms Are Negative For: fever. Risk Screens Suicide Risk Screen In the Past Month: Have you wished you were or wished you could go to sleep and not wake up no In the Past Month: Have you had any actual thoughts of killing yourself no In Your Lifetime: Have you ever done anything, started to do anything, or prepared to do anything to end your life no Davila Fall Scale Screening Has the patient fallen before (or is the patient in the ED as a result of a fall) has not had a fall Does the patient have an impaired gait does not have impaired gait Is the patient cognitively impaired not cognitively impaired Interventions: Davila Fall Interventions: LOW INTERVENTIONS: *patient oriented to surroundings and call system, * patient/family falls education completed and documented, *patients fall status communicated during bedside handoff, *whiteboard updated, *mode of toileting discussed with patient, *bed in low position with brakes locked, *call light in reach, * non-skid footwear TRAVEL HISTORY Travel History Coronavirus Screening: COVID positive within the last 13 days Travel Exposure History: NO travel to International locations in the past 30 days PAIN Pain Scale Used: GORDO Pain Assessment: tightness Pain Rating (0-10): 4 = Moderate Past Medical History: Past Medical History Reviewedyes GERD: Past Medical History, Active LYNDA on CPAP: Past Medical History, Active Gout: Past Medical History, Active Hypertension: Past Medical History, Active Electronic Signatures: Maggy Baeza (TIFF) (Signed 15-May-2021 00:17) Authored: Quick Triage, Risk Screens, Pain, Arrival, Travel History, Chart Review, Scores, Past Medical History Last Updated: 15-May-2021 00:17 by Maggy Baeza (RN) [facility] Comprehensive metabolic 2000 panelOrdered By: Marcela Suárez on 01-16-2021 Albumin [Mass/Vol] 4.4 g/dL 3.2 - 5.2 g/dL [facility] ALP [Catalytic activity/Vol] 58 U/L 40 - 140 U/L [facility] ALT [Catalytic activity/Vol] 112 U/L High 14 - 65 U/L [facility] Anion gap [Moles/Vol] 6 mmol/L Low 10 - 2 0 mmol/L [facility] AST [Catalytic activity/Vol] 46 U/L High 0 - 45 U/L [facility] Bilirubin [Mass/Vol] 1.2 mg/dL 0.0 - 1 .3 mg/dL [facility] Calcium [Mass/Vol] 8.9 mg/dL 8.4 - 10. 2 mg/dL [facility] Chloride [Moles/Vol] 106 mmol/L 98 - 10 8 mmol/L [facility] Creatinine [Mass/Vol] 1.03 mg/dL 0.50 - 1.30 [facility] GFR/1.73 sq M.predicted CKD-EPI (S/P/Bld) [Vol rate/Area] 94 >=60 mL/min/1.73 m2 [facility] Glucose [Mass/Vol] 119 mg/dL High 65 - 99 mg/dL [facility] HCO3 [Moles/Vol] 30 mmol/L 21 - 32 mmol/L [facility] Potassium [Moles/Vol] 4.2 mmol/L 3.5 - 5.1 mmol/L [facility] Protein [Mass/Vol] 7.6 g/dL 6.0 - 8.0 g/dL [facility] Sodium [Moles/Vol] 138 mmol/L 135 - 145 mmol/L [facility] Urea nitrogen [Mass/Vol] 12 mg/dL 8 - 25 mg/dL [facility] Urea nitrogen/Creatinine [Mass ratio] 11.7 mg/mg [facility] The eGFR should be used for monitoring renal function only and not for medication dosing. [facility] HbA1c (Bld) [Mass fraction]O rdered By: Marcela Suárez on 01-16-2021 Average glucose Estimated from glycated hemoglobin (Bld) [Mass/Vol] 120 mg/dL High 68 - 114 mg/dL [facility] Interpretation and review of laboratory results Abnormal [facility] Normal: 4.0% - 5.6% Increased risk for diabetes: 5.7% - 6.4% Diabetes: >= 6.5% Pediatrics: No established reference range Estimated average glucose: 68-114 mg/dL [facility] Hemoglobin [id number] By: Hadley Suárez on 01-16-2021 HbA1c (Bld) [Mass fraction] 5.8 % High 4.0 - 5.6 % [facility] Lipid 1996 panelOrdered By: Marcela Suárez on 01-16-2021 Cholesterol [Mass/Vol] 123 mg/dL 100 - 199 mg/dL [facility] Comment on above: National Cholesterol Education Program Guidelines: Cholesterol Desirable: <200 mg/dL Borderline High: 200-239 mg/dL High: greater than or equal to 240 mg/dL Cholesterol in HDL [Mass/Vol] 39 mg/dL Low 40 - 59 [facility] Comment on above: National Cholesterol Education Program Guidelines: HDL Cholesterol Low: <40 mg/dL Near Optimal: 40-59 mg/dL High: greater than or equal to 60 mg/dL Cholesterol in LDL [Mass/Vol] 57 mg/dL 10 - 130 mg/dL [facility] Comment on above: National Cholesterol Education Program Guidelines: LDL Cholesterol Optimal: <100 mg/dL Near Optimal/above Optimal: 100-129 mg/dL Borderline High: 130-159 mg/dL High: 160-189 mg/dL Very High: greater than or equal to 190 mg/dL Cholesterol non HDL [Mass/Vol] 84 mg/dL [facility] Comment on above: National Cholesterol Education Program Guidelines: NON HDL Cholesterol Desirable: <130 mg/dL Borderline High: 130-159 mg/dL High: 160-189 mg/dL Very High: > or = 190 mg/dL Cholesterol.total/Chol esterol in HDL [Mass ratio] 3.2 {ratio} ratio [facility] Comment on above: Males Cholesterol/HD L Ratio: Average risk: 5.0 1/2 average risk: 3.4 2 x average risk: 9.6 Triglyceride [Mass/Vol] 137 mg/dL 30 - 150 mg/dL [facility] Comment on above: National Cholesterol Education Program Guidelines: Triglyceride Normal: <150 mg/dL Borderline High: 150-199 mg/dL High: 200-499 mg/dL Very High: greater than or equal to 500 mg/dL MICROALBUMIN, URINE, RANDOMO rdered By: Marcela Suárez on 01-16-2021 Albumin DL <= 20 mg/L (U) [Mass/Vol] 1.3 mg/dL 0.0 - 1.8 mg/dL [facility] Albumin/Creatinine DL <= 20 mg/L (U) [Mass ratio] 7 mg/g [facility] Creatinine (U) [Mass/Vol] 194.0 mg/dL [facility] No Panel InformationOrdered By: Marcela Suárez on 01-16-2021 Interpretation and review of laboratory results Abnormal [facility] Urate [Mass/Vol]Ordered By: Marcela Suárez on 01-16-2021 Interpretation and review of laboratory results Normal [facility] Uric AcidOrdered By: Marcela parra on 01-16-2021 Urate [Mass/Vol] 7.2 mg/dL 3.4 - 8.5 mg/dL [facility] CMPon 06-08-2019 Albumin [Mass/Vol] 4.5 g/dL Normal 3.4-5.0 [facility] Comment on above: Performed By: #### 2 [id number] #### [facility] [employer] [address] [place] [id number] Albumin/Globulin [Mass ratio] 2.0 {ratio} High 1.1-1.9 [facility] Comment on above: Performed By: #### 2 [id number] #### [facility] [employer] [address] [place] [address] Alk Phos 36 Int._Unit/L Normal 33-120 [facility] Comment on above: Performed By: #### 2 [id number] #### [facility] [employer] [address] [place] [address] ALT [Catalytic activity/Vol] 86 Int._Unit/L High 10-52 [facility] Comment on above: Performed By: #### 2 [id number] #### [facility] [employer] [address] [place] [address] Anion gap [Moles/Vol] 11 mmol/L Normal 10-20 [facility] Comment on above: Performed By: #### 2 [id number] #### [facility] [employer] [address] [place] [address] 77519 AST [Catalytic activity/Vol] 42 Int._Unit/L High 9-39 [facility] Comment on above: Performed By: #### 2 [id number] #### [facility] [employer] [address] [place] [address] 48377 Bili Total 1.38 mg/dL High 0.00-1.20 [facility] Comment on above: Performed By: #### 2 960038 #### [facility] [employer] [address] [place] [address] 17629 Calcium [Mass/Vol] 9.2 mg/dL Normal 8.6-10.3 [facility] Comment on above: Performed By: #### 2 [id number] #### [facility] [employer] [address] [place] [address] 87365 Chloride [Moles/Vol] 104 mmol/L Normal 98-107 [facility] Comment on above: Performed By: #### 2 [id number] #### ARIE[facility] [employer] [address] [place] [address] 27733 CO2 [Moles/Vol] 26.0 mmol/L Normal 21.0-32.0 [facility] Comment on above: Performed By: #### 2 [id number] #### [facility] [employer] [address] [place] [address] 86083 Creatinine [Mass/Vol] 1.0 mg/dL Normal 0.5-1.3 [facility] Comment on above: Performed By: #### 2 015112 #### [facility] [employer] [address] [place] [address] 02155 Globulin (S) [Mass/Vol] 2.0 g/dL Normal 2.0-4.0 [facility] Comment on above: Performed By: #### 2 [id number] #### [facility] [employer] [address] [place] [address] 02719 Glucose [Mass/Vol] 110 mg/dL High 70-99 [facility] Comment on above: Performed By: #### 2 680454 #### [facility] [employer] [address] [place] [address] 15980 Potassium [Moles/Vol] 4.2 mmol/L Normal 3.5-5.3 [facility] Comment on above: Performed By: #### 2 [id number] #### [facility] [employer] [address] [place] [address] 97394 Protein [Mass/Vol] 6.7 g/dL Normal 6.4-8.2 [facility] Comment on above: Performed By: #### 2 756375 #### [facility] [employer] [address] [place] [address] 51759 Sodium [Moles/Vol] 137 mmol/L Normal 136-145 [facility] Comment on above: Performed By: #### 2 065709 #### [facility] [employer] [address] [place] [address] 49519 Urea nitrogen [Mass/Vol] 13 mg/dL Normal 6-23 [facility] Comment on above: Performed By: #### 2 361435 #### [facility] [employer] [address] [place] [address] 21818 Urea nitrogen/Creatinine [Mass ratio] 13.0 ratio Normal 5.4-30.0 [facility] Comment on above: Performed By: #### 2 [id number] #### [facility] [employer] [address] [place] [address] 41693 [id number] 06-08-2019 HbA1c (Bld) [Mass fraction] 5.9 % Normal 4.0-6.3 [facility] Comment on above: Performed By: #### 2 [id number] #### ARIELLA [employer] [address] [place] [address] Lipid Profileon 06-08-2019 Cholesterol [Mass/Vol] 129 mg/dL Normal 0-199 [facility] Comment on above: Result Comment: TOTA L CHOLEESTEROL: <200 NORMAL 200 - 239 BORDERLINE HIGH >240 HIGH Performed By: #### 2 611559 #### ARIELLA [employer] [facility] [place] [address] Cholesterol in HDL [Mass/Vol] 39 mg/dL Low 40-60 [facility] Comment on above: Performed By: #### 2 609401 #### [facility]LLA [employer] [facility] [place] [address] Cholesterol in LDL [Mass/Vol] 76 mg/dL Normal 0-130 [facility] Comment on above: Result Comment: <100 OPTIMAL 100-129 NEAR / ABOVE OPTIMAL 130-159 BORDERLINE HIGH 160-189 HIGH >190 VERY HIGH CALC LDL NOT VALID WHEN TRIGLYCERIDE IS >400 MG/DL Performed By: #### 2 010190 #### ARIELLA [employer] [facility] [place] [address] Cholesterol in VLDL [Mass/Vol] 14 mg/dL Normal 0-40 [facility] Comment on above: Performed By: #### 2 527727 #### [facility]ELLA [employer] [address] [place] [address] Triglyceride [Mass/Vol] 70 mg/dL Normal 0-149 [facility] Comment on above: Result Comment: AGE DESIRABLE BORDERLINE HIGH 91 D - 9 Y 0 - 74 75 - 99 > 100 10 - 19 Y 0 - 89 90 - 129 > 130 20 -24 Y 0 - 114 115 - 149 > 150 > 25 0 - 149 150 - 199 200 - 499 Performed By: #### 2 [id number] #### ARIELLA [employer] [address] [place] [address] Uric Acidon 06-08-2019 Urate [Mass/Vol] 8.4 mg/dL High 4.0-7.5 [facility] Comment on above: Performed By: #### 2 [id number] #### ARIELLA [employer] [address] [place] [address] eGFRon 06-08-2019 GFR/1.73 sq M predicted among non-blacks MDRD (S/P/Bld) [Vol rate/Area] mL/min/{1.73_m2} Normal [facility] Comment on above: Order Comment: Order added by Discern Expert. Performed By: #### 1 [id number] #### ARIELLA [employer] [address] [place] [address] VICENTE BY IFA SCREEN [CCL]on VICENTE Pattern Negative Normal [facility] Comment on above: Result Comment: [place] [address] [place] [address] Loraine Figueroa M.D. [id number] Performed By: #### 2 65979 #### [facility],[address] [place] [address] VICENTE Titer Negative Normal NEGAT [facility] Comment on above: Result Comment: Norm al range : negative at <1:80 serum dilution. Performed By: #### 2 13354 #### [facility],[address] [place] [address] VICENTE by IFAon 04-15-2019 VICENTE Pattern ANANOT Normal [facility] Comment on above: Performed By: #### R F #### [facility] [employer] [facility] [address] [place] [address] #### ANAIFS #### [facility] [address] [place] [address] VICENTE Titer Normal Negative [facility] Comment on above: Result Comment: Nega tive Normal range : negatie at <1:80 serum dilution. Performed By: #### R F #### [facility] [employer] [facility] [address] [place] [address] #### ANAIFS #### [facility] [address] [place] [address] Nuclear Ab IF (S) [Titer] Negative Normal NEGAT [facility] Comment on above: Performed By: #### R F #### [facility] [address] [place] [address] #### ANAIFS #### [facility] [address] [place] [address] Result Comment: Norm al range : negative at <1:80 serum dilution. Approximately 6% of patients with connective tissue diseases with low positive EIA values are negative by IFA. Recommend follow-up with specific antinuclear antibodies if clinically indicated. Performed By: #### 2 17039 #### [place] [address] HLA-B27 PCR [CCL]on 04-15-20 HLA-B27 DNA Result Negative Normal [facility] Comment on above: Result Comment: HLA- B27 is strongly associated with ankylosing spondylitis (). HLA-B27 is also associated with other seronegative arthropathies such as Maxi syndrome and psoriatic arthritis as well as extra-articular diseases such as anterior uveitis and inflammatory bowel disease. Greater than 90% of patients with are HLA-B27 positive. The frequency of HLA-B27 varies by ethnic group but generally <10 % in most [place] populations. HLA-B27 associated susceptibility to varies by population and HLA-B27 alleles detected. Some alleles such as B27:05 are associated with high susceptibility while others such B27:06 and B27:09 are associated with low susceptibility. HLA-B27 allele typing is recommended in HLA-B27 positive cases. HLA typing performed by PCR-RSSOP and/or SBT. This test was developed and its performance characteristics determined by [employer]. The test has not been cleared or approved by the [place] FDA. However, FDA approval was not necessary since this lab is certified under CLIA for high complexity testing. Test performed by: [facility], [address] [id number] CLIA [id number] Performed By: #### 2 [id number] #### [facility],[address] [place] [address] RHEUMATOID FACTOR [CCL]on Rheumatoid Factor <10 Normal <16 [facility] Comment on above: Result Comment: [facility] [address] [place] [address] Loraine Figueroa M.D. [id number] Performed By: #### 2 07506 #### [facility],[address] [place], [place] [id number] Rheumatoid Factoron 04-14-20 19 Rheumatoid Factor <10 Normal <16 [facility] Comment on above: Performed By: #### R F #### [facility] [address] [place] [address] #### ANAIFS #### [facility] [address] [place] [address] C-REACTIVE PROTEINon 019 CRP [Mass/Vol] 0.40 mg/dl Normal 0.00 - 1.00 [facility] Comment on above: Performed By: #### 2 64870 #### [facility],[address] [place], [place] [id number] SEDRATEon 04-13-2019 SEDRATE 2 mm/hr Normal 0 - 20 [facility] Comment on above: Performed By: #### 2 69681 #### [facility],[address] [place] [address] 18163 URIC ACIDon 04-13-2019 Urate [Mass/Vol] 8.2 mg/dL High 4.4 - 7.6 [facility] Comment on above: Performed By: #### 2 99646 #### [facility],[address] [place], [place] [id number] XR Foot 3+ Views Lefton 03-11 XR Foot 3+ Views Left Exam Date/Time: 04/07/2019 09:51 EDT Reason for Exam: Pain, Non Traumatic Report STUDY: XR Foot 3+ Views Left; 04/07/2019 9:51 am INDICATION: Pain, Non Traumatic. COMPARISON: None. ACCESSION NUMBER(S): [id number] ORDERING CLINICIAN: Sammy Lucas TECHNIQUE: Three views of the left foot including AP, oblique and lateral projections were obtained. FINDINGS: There is no radiographic evidence of acute fracture or dislocation identified. The joint spaces are well preserved throughout without significant degenerative changes. IMPRESSION: 1. No acute fracture or dislocation identified. FINAL REPORT Dictated: 04/07/2019 10:38 am Jabier Doan MD Signed (Electronic Signature): 04/07/2019 10:38 am Signed by: Jabier Doan MD Technologist: JOLEEN Normal [facility] Troponin-Ion 12-05-2018 Troponin I.cardiac [Mass/Vol] ng/mL Normal .00-.03 [facility] Comment on above: Performed By: #### 2 [id number] #### [facility]LLA [employer] [address] [place] [address] 60068 Auto Diffon 12-04-2018 Basophils (Bld) [#/Vol] 0.1 E3/mcL Normal 0.0-0.2 [facility] Comment on above: Order Comment: Order Added by Discern Expert. Performed By: #### 2 [id number] #### ARIELLA [employer] [facility] [place] [address] Basophils/100 WBC (Bld) 1.0 % Normal 0.0-2.0 [facility] Comment on above: Order Comment: Order Added by Discern Expert. Performed By: #### 2 598645 #### ARIELLA [employer] [address] [place] [address] Eos Absolute 0.2 E3/mcL Normal 0.0-0.7 [facility] Comment on above: Order Comment: Order Added by Discern Expert. Performed By: #### 2 618260 #### [facility]LLA [employer] [address] [place] [address] Eosinophils/100 WBC (Bld) 1.8 % Normal 0.0-11.0 [facility] Comment on above: Order Comment: Order Added by Discern Expert. Performed By: #### 2 841754 #### [facility]ELLA [employer] [address] [place] [address] Lymphocytes (Bld) [#/Vol] 3.9 E3/mcL High 1.2-3.4 [facility] Comment on above: Order Comment: Order Added by Discern Expert. Performed By: #### 2 279965 #### [facility]A [employer] [address] [place] [address] Lymphocytes/100 WBC (Bld) 34.3 % Normal 20.0-55.0 [facility] Comment on above: Order Comment: Order Added by Discern Expert. Performed By: #### 2 891196 #### ARIELLA [employer] [address] [place] [address] [place] Absolute 0.7 E3/mcL Normal 0.0-0.7 [facility] Comment on above: Order Comment: Order Added by Discern Expert. Performed By: #### 2 290694 #### ARIELLA [employer] [address] [place] [address] Monocytes/100 WBC (Bld) 6.3 % Normal 0.0-10.0 [facility] Comment on above: Order Comment: Order Added by Discern Expert. Performed By: #### 2 751737 #### [facility]A [employer] [address] [place] [address] Neutro Absolute 6.4 E3/mcL Normal 1.4-6.5 [facility] Comment on above: Order Comment: Order Added by Discern Expert. Performed By: #### 2 748127 #### [facility]A [employer] [address] [place] [address] Neutro Auto 56.6 % Normal 37.0-75.0 [facility] Comment on above: Order Comment: Order Added by Discern Expert. Performed By: #### 2 149097 #### [facility]ELLA [employer] [address] [place] [address] BMPon 12-04-2018 Anion gap [Moles/Vol] 10 mmol/L Normal 10-20 [facility] Comment on above: Performed By: #### 2 324974 #### ARIELL[facility] [employer] [address] [place] [address] 92909 Calcium [Mass/Vol] 9.8 mg/dL Normal 8.6-10.3 [facility] Comment on above: Performed By: #### 2 333579 #### ARI[facility]LL[facility] [employer] [address] [place] [address] 10640 Chloride [Moles/Vol] 105 mmol/L Normal 98-107 [facility] Comment on above: Performed By: #### 2 167324 #### [facility]ELLA [employer] [address] [place] [address] 27185 CO2 [Moles/Vol] 29.0 mmol/L Normal 21.0-32.0 [facility] Comment on above: Performed By: #### 2 658607 #### ARI[facility]LL[facility] [employer] [address] [place] [address]1006 Creatinine [Mass/Vol] 1.0 mg/dL Normal 0.5-1.3 [facility] Comment on above: Performed By: #### 2 [id number] #### [facility] [employer] [address] [place] [address] 65670 Glucose [Mass/Vol] 150 mg/dL High 70-99 [facility] Comment on above: Performed By: #### 2 791221 #### [facility] [employer] [address] [place] [address] 64858 Potassium [Moles/Vol] 4.2 mmol/L Normal 3.5-5.3 [facility] Comment on above: Performed By: #### 2 612051 #### [facility] [employer] [address] [place] [address] 56624 Sodium [Moles/Vol] 140 mmol/L Normal 136-145 [facility] Comment on above: Performed By: #### 2 519055 #### [facility] [employer] [address] [place] [address] 29040 Urea nitrogen [Mass/Vol] 14 mg/dL Normal 6-23 [facility] Comment on above: Performed By: #### 2 891201 #### [facility] [employer] [address] [place] [address] 46583 Urea nitrogen/Creatinine [Mass ratio] 14.0 ratio Normal 5.4-30.0 [facility] Comment on above: Performed By: #### 2 246288 #### [facility] [employer] [address] [place] [address] 05441 CBC w/ Auto Diffon 9 Erythrocyte distribution width (RBC) [Ratio] 13.3 % Normal 11.5-14.5 [facility] Comment on above: Performed By: #### 2 034327 #### ARIELLA [employer] [address] [place] [address] Hematocrit (Bld) [Volume fraction] 48.6 % Normal 42.0-52.0 [facility] Comment on above: Performed By: #### 2 243600 #### ARIELLA Herrera[employer] [facility] [place] [address] Hemoglobin (Bld) [Mass/Vol] 16.2 g/dL Normal 13.5-18.0 [facility] Comment on above: Performed By: #### 2 434098 #### ARIELLA [employer]rera[employer] [facility] [place] [address] MCH (RBC) [Entitic mass] 28.7 pg Normal 27.0-31.0 [facility] Comment on above: Performed By: #### 2 415224 #### ARIELLA [employer] [address] [place] [address] 19662 MCHC (RBC) [Mass/Vol] 33.3 g/dL Normal 33.0-37.0 [facility] Comment on above: Performed By: #### 2 880881 #### ARIELLA [employer]rera[employer] [address] [place] [address] 21233 MCV (RBC) [Entitic vol] 86.0 fL Normal 78.0-100.0 [facility] Comment on above: Performed By: #### 2 640671 #### ARIELLA [employer]rrera[employer] [facility] [place] [address] Platelet mean volume (Bld) [Entitic vol] 8.3 fL Normal 7.4-11.0 [facility] Comment on above: Performed By: #### 2 997952 #### ARIELLA [employer] [address] [place] [address] Platelets (Bld) [#/Vol] 285 E3/mcL Normal 130-400 [facility] Comment on above: Performed By: #### 2 951656 #### [facility]ELLA [employer] [address] [place] [address] RBC (Bld) [#/Vol] 5.66 E6/mcL Normal 3.90-6.10 [facility] Comment on above: Performed By: #### 2 251113 #### ARIELLA [employer] [address] [place] [address] WBC (Bld) [#/Vol] 11.2 E3/mcL High 3.6-11.0 [facility] Comment on above: Performed By: #### 2 429622 #### ARIELLA [employer] [facility] [place] [address] Troponin-Ion 12-04-2018 Troponin I.cardiac [Mass/Vol] ng/mL Normal .00-.03 [facility] Comment on above: Performed By: #### 2 [id number] #### ARIELLA [employer] [facility] [place] [address] XR Chest 2 Viewson 9 XR Chest 2 Views Exam Date/Time: 12/04/2018 19:45 EDT Reason for Exam: Cough Report STUDY: XR Chest 2 Views; 12/04/2018 7:45 pm INDICATION: Cough. COMPARISON: None. ACCESSION NUMBER(S): [id number] ORDERING CLINICIAN: Renzo Osborn FINDINGS: CARDIOMEDIASTINAL SILHOUETTE: Cardiomediastinal silhouette is normal in size and configuration. LUNGS: Lungs are clear. ABDOMEN: No remarkable upper abdominal findings. BONES: No acute osseous changes. IMPRESSION: 1. No evidence of acute cardiopulmonary process. FINAL REPORT Dictated: 12/04/2018 7:53 pm Doug Saez MD Signed (Electronic Signature): 12/04/2018 7:53 pm Signed by: Doug Saez MD Technologist: [facility] eGFRon 12-04-2018 GFR/1.73 sq M predicted among non-blacks MDRD (S/P/Bld) [Vol rate/Area] mL/min/{1.73_m2} [facility] Comment on above: Order Comment: Order added by Discern Expert. Performed By: #### 1 [id number] #### ARIELLA [employer] [facility] [place] [address] Vital Signs Date Time Vital Sign Value Performing Clinician Facility 07-20-2025 10:58-0500 Body height 180.3 cm Masha Coovert DO Work Phone: [facility] 07-20-2025 10:58-0500 Body mass index (BMI) [Ratio] 42.16 kg/m2 Masha Coovert DO Work Phone: [facility] 07-20-2025 10:58-0500 Body temperature 98.6 [degF] Masha Coovert DO Work Phone: [facility] 07-20-2025 10:58-0500 Body weight 137.12 kg Masha Coovert DO Work Phone: [facility] 07-20-2025 10:58-0500 Diastolic blood pressure 90 mm[Hg] Masha Coovert DO Work Phone: [facility] 07-20-2025 10:58-0500 Heart rate 82 /min Masha Coovert DO Work Phone: [facility] 07-20-2025 10:58-0500 Respiratory rate 16 /min Masha Coovert DO Work Phone: [facility] 07-20-2025 10:58-0500 SaO2% (BldA) [Mass fraction] 95 % Masha Coovert DO Work Phone: [facility] 07-20-2025 10:58-0500 Systolic blood pressure 130 mm[Hg] Masha Coovert DO Work Phone: [facility] 05-19-2025 15:00-0400 Diastolic blood pressure 90 mm[Hg] Justo Debbie DO Work Phone: [facility] 05-19-2025 15:00-0400 Systolic blood pressure 138 mm[Hg] Justo Debbie DO Work Phone: [facility] 05-19-2025 14:47-0400 Body height 180 cm Justo Debibe DO Work Phone: [facility] 05-19-2025 14:47-0400 Body mass index (BMI) [Ratio] 42.31 kg/m2 Justo Debbie DO Work Phone: [facility] 05-19-2025 14:47-0400 Body temperature 98.29 [degF] Justo Debbie DO Work Phone: [facility] 05-19-2025 14:47-0400 Body weight 137.08 kg Justo Debbie DO Work Phone: [facility] 05-19-2025 14:47-0400 Heart rate 83 /min Justo Debbie DO Work Phone: [facility] 05-19-2025 14:47-0400 Respiratory rate 18 /min Justo Debbie DO Work Phone: [facility] 05-19-2025 14:47-0400 SaO2% (BldA) [Mass fraction] 94 % Justo Debbie DO Work Phone: [facility] 02-03-2025 11:00-0400 Diastolic blood pressure 99 mm[Hg] Ignacio Brown PA Work Phone: [facility] 02-03-2025 11:00-0400 Heart rate 76 /min Ignacio Brown PA Work Phone: [email or web address] 02-03-2025 11:00-0400 Respiratory rate 18 /min Ignacio Brown PA Work Phone: [email or web address] 02-03-2025 11:00-0400 SaO2% (BldA) [Mass fraction] 94 % Ignacio Brown PA Work Phone: [facility] 02-03-2025 11:00-0400 Systolic blood pressure 148 mm[Hg] Ignacio Brown PA Work Phone: [email or web address] 02-03-2025 10:04-0400 Body height 180.3 cm Ignacio Brown PA Work Phone: [email or web address] 02-03-2025 10:04-0400 Body mass index (BMI) [Ratio] 40.27 kg/m2 Ignacio Brown PA Work Phone: [email or web address] 02-03-2025 10:04-0400 Body weight 130.95 kg Ignacio Brown PA Work Phone: [facility] 02-03-2025 10:03-0400 Body temperature 97.81 [degF] Ignacio Umanzor PA Work Phone: [facility] 12-29-2024 14:59-0400 Body height 180.3 cm Marcello Quiles MD Work Phone: [facility] 12-29-2024 14:59-0400 Body mass index (BMI) [Ratio] 40.53 kg/m2 Marcello Quiles MD Work Phone: [facility] 12-29-2024 14:59-0400 Body temperature 98.6 [degF] Marcello Quiles MD Work Phone: [facility] 12-29-2024 14:59-0400 Body weight 131.8 kg Marcello Quiles MD Work Phone: [facility] [employer] [facility] 09-21-2024 14:26-0500 Body height 180.3 cm Chandana Alcala MD Work Phone: [facility] 09-21-2024 14:26-0500 Body mass index (BMI) [Ratio] 40.53 kg/m2 [facility] 09-21-2024 14:26-0500 Body weight 131.81 kg Chand[facility]cala MD [facility] 09-21-2024 14:26-0500 Diastolic blood pressure 90 mm[Hg] Chandana Alcala MD Work Phone: [facility] 09-21-2024 14:26-0500 Systolic blood pressure 130 mm[Hg] Chandana Alcala MD Work Phone: [facility] 08-28-2024 08:17-0500 Body height 180.3 cm Ignacio Umanzor PA Work Phone: [facility] 08-28-2024 08:17-0500 Body mass index (BMI) [Ratio] 40.53 kg/m2 Ignacio Brown PA Work Phone: [email or web address] 08-28-2024 08:17-0500 Body temperature 96.69 [degF] Ignacio Brown PA Work Phone: [email or web address] 08-28-2024 08:17-0500 Body weight 131.81 kg Ignacio Brown PA Work Phone: [email or web address] 08-28-2024 08:17-0500 Diastolic blood pressure 79 mm[Hg] Ignacio Brown PA Work Phone: [email or web address] 08-28-2024 08:17-0500 Heart rate 59 /min Ignacio Brown PA Work Phone: [email or web address] 08-28-2024 08:17-0500 Respiratory rate 16 /min Ignacio Brown PA Work Phone: [email or web address] 08-28-2024 08:17-0500 SaO2% (BldA) [Mass fraction] 97 % Ignacio Brown PA Work Phone: [email or web address] 08-28-2024 08:17-0500 Systolic blood pressure 135 mm[Hg] Ignacio Brown PA Work Phone: [email or web address] 07-31-2023 12:57-0500 Body height 180.3 cm Ignacio Brown PA Work Phone: [email or web address] 07-31-2023 12:57-0500 Body mass index (BMI) [Ratio] 41.2 kg/m2 Ignacio Brown PA Work Phone: [email or web address] 07-31-2023 12:57-0500 Body temperature 97.59 [degF] Ignacio Brown PA Work Phone: [email or web address] 07-31-2023 12:57-0500 Body weight 133.99 kg Ignacio Brown PA Work Phone: [email or web address] 07-31-2023 12:57-0500 Diastolic blood pressure 78 mm[Hg] Ignacio Brown PA Work Phone: [email or web address] 07-31-2023 12:57-0500 Heart rate 64 /min Ignacio Brown PA Work Phone: [facility] [employer] [facility] 07-31-2023 12:57-0500 Respiratory rate 16 /min Ignacio Brown PA Work Phone: [facility] 07-31-2023 12:57-0500 SaO2% (BldA) [Mass fraction] 98 % Ignacio Brown PA Work Phone: [facility] 07-31-2023 12:57-0500 Systolic blood pressure 135 mm[Hg] Ignacio Brown PA Work Phone: [facility] 12-20-2022 10:17-0400 Body height 180.3 cm Huey Alarcon MD Work Phone: [facility] 12-20-2022 10:17-0400 Body mass index (BMI) [Ratio] 38.84 kg/m2 Huey Alarcon MD Work Phone: [facility] 12-20-2022 10:17-0400 Body weight 126.33 kg Huey Alarcon MD Work Phone: [facility] 12-20-2022 10:17-0400 Diastolic blood pressure 76 mm[Hg] Huey Alarcon MD Work Phone: [facility] 12-20-2022 10:17-0400 Heart rate 66 /min Huey Alarcon MD Work Phone: [facility] 12-20-2022 10:17-0400 SaO2% (BldA) [Mass fraction] 97 % Huey Alarcon MD Work Phone: [facility] 12-20-2022 10:17-0400 Systolic blood pressure 114 mm[Hg] Huey Alarcon MD Work Phone: [facility] 10-04-2022 15:04-0500 Body height 180.3 cm Marcela Suárez MD Work Phone: [facility] 10-04-2022 15:04-0500 Body mass index (BMI) [Ratio] 39.41 kg/m2 Marcela Suárez MD Work Phone: [facility] 10-04-2022 15:04-0500 Body temperature 98.29 [degF] Marcela Suárez MD Work Phone: [facility] 10-04-2022 15:04-0500 Body weight 128.19 kg Marcela Suárez MD Work Phone: [facility] 10-04-2022 15:04-0500 Diastolic blood pressure 83 mm[Hg] Marcela Suárez MD Work Phone: [facility] 10-04-2022 15:04-0500 Heart rate 86 /min Marcela Suárez MD Work Phone: [facility] 10-04-2022 15:04-0500 Respiratory rate 16 /min Marcela Suárez MD Work Phone: [facility] 10-04-2022 15:04-0500 SaO2% (BldA) [Mass fraction] 96 % Marcela Suárez MD Work Phone: [facility] 10-04-2022 15:04-0500 Systolic blood pressure 128 mm[Hg] Marcela Suárez MD Work Phone: [facility] 05-15-2021 03:22-0400 Diastolic blood pressure 98 mm[Hg] Text Entry [facility] 05-15-2021 03:22-0400 Heart rate 96 /min Text Entry [facility] 05-15-2021 03:22-0400 Respiratory rate 20 /min Text Entry [facility] 05-15-2021 03:22-0400 SaO2% (BldA) [Mass fraction] 95 % Text Entry [facility] 05-15-2021 03:22-0400 Systolic blood pressure 136 mm[Hg] Text Entry [facility] 01-16-2021 10:18-0400 Diastolic blood pressure 79 mm[Hg] Marcela Suárez MD Work Phone: [facility] 01-16-2021 10:18-0400 Systolic blood pressure 138 mm[Hg] Marcela Suárez MD Work Phone: [facility] 01-16-2021 10:03-0400 Body height 180.3 cm Marcela Suárez MD Work Phone: [facility] 01-16-2021 10:03-0400 Body mass index (BMI) [Ratio] 41.66 kg/m2 Marcela Suárez MD Work Phone: [facility] 01-16-2021 10:03-0400 Body temperature 97.81 [degF] Marcela Suárez MD Work Phone: [facility] 01-16-2021 10:03-0400 Body weight 135.49 kg Marcela Suárez MD Work Phone: [facility] 01-16-2021 10:03-0400 Heart rate 86 /min Marcela Suárez MD Work Phone: [facility] 01-16-2021 10:03-0400 Respiratory rate 16 /min Marcela Suárez MD Work Phone: [facility] 01-16-2021 10:03-0400 SaO2% (BldA) [Mass fraction] 95 % Marcela Suárez MD Work Phone: [facility] Encounters Encounter Date Encounter Type Care Provider Facility Start: 07-20-2025 ambulatory JUSTO LEWIS [facility] Ambulatory Start: 07-20-2025 End: 07-20-2025 Office outpatient visit 25 minutes Masha Ayala DO Work Phone: [facility] Comment on above: Crush injury (Primar y Dx); Acute bilateral low back pain without sciatica; Constipation, unspecified constipation type Start: 07-17-2025 End: 07-17-2025 Emergency department patient visit Justo Lewis Facility:[facility] Start: 07-15-2025 End: 07-16-2025 Emergency department patient visit Justo Lewis Facility:[facility] Start: 07-15-2025 End: 07-15-2025 Emergency department patient visit JUSTO LEWIS 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; Vitamin D deficiency Start: 05-19-2025 End: 05-19-2025 ambulatory JUSTO LEWIS [facility] Start: 02-03-2025 End: 02-03-2025 Emergency department patient visit IGNACIOJESSICA UMANZOR [facility] Emergency Department Start: 02-03-2025 End: 02-03-2025 Office outpatient visit 10 minutes Ro DON Work Phone: [facility] Comment on above: Chest pain, unspecif ied type (Primary Dx) Start: 02-03-2025 ambulatory SELF SELF [facility] Start: 12-29-2024 End: 12-29-2024 Office outpatient new 30 minutes Marcello Quiles MD Work Phone: [facility] Comment on above: Left wrist pain ([place]ilia hill Dx) Start: 12-29-2024 ambulatory IGNACIOJESSICA UMANZOR [facility] Start: 11-11-2024 ambulatory IGNACIO UMANZOR [facility] Start: 10-08-2024 ambulatory IGNACIO UMANZOR [facility] Start: 10-08-2024 End: 10-08-2024 Subsequent hospital visit by physician Ignacio CACERES Work Phone: [facility] MRI Comment on above: Arrived Start: 09-21-2024 End: 09-21-2024 Office outpatient new 45 minutes Chandana Alcala MD Work Phone: [facility] General Surgery Comment on above: Abdominal pain, gene ralized (Primary Dx); Gastroesophageal reflux disease, unspecified whether esophagitis present Start: 09-21-2024 ambulatory IGNACIO [facility] Start: 08-28-2024 End: 08-28-2024 Office outpatient visit 25 minutes Ignacio Marisela Erna CACERES Work Phone: [facility] Internal Medicine Comment on above: Well adult exam ([place]ilia hill Dx); 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, unspecified cause; Mixed hyperlipidemia; Prediabetes; LYNDA on CPAP; Fatty liver; Chronic pain of left wrist; Gastroesophageal reflux disease, unspecified whether esophagitis present Start: 08-28-2024 End: 08-28-2024 Patient encounter status Ignacio Antonio Erna CACERES Work Phone: [email or web address] Work Phone: Start: 08-28-2024 ambulatory IGNACIO [facility] Start: 07-31-2023 End: 07-31-2023 Office outpatient new 45 minutes Ignacio Marisela Erna CACERES Work Phone: [facility] Internal Medicine Comment on above: Well adult exam ([place]ilia hill Dx); Need for lipid screening; Diabetes mellitus screening; Vitamin D deficiency; Ulnar abutment syndrome of left wrist; 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, unspecified cause; LYNDA on CPAP; Gastric reflux Start: 07-31-2023 End: 07-31-2023 Patient encounter status Ignacio Umanzor MORRIS Work Phone: [email or web address] Work Phone: Start: 12-20-2022 Admission to [facility] Huey Alarcon MD Work Phone: [facility] Comment on above: Gastroesophageal ref lux disease, unspecified whether esophagitis present (Primary Dx) Family history of co hollis cancer (Primary Dx) Start: 12-20-2022 ambulatory HUEY RENDON DORIAN [facility] Start: 12-20-2022 End: 12-20-2022 Office outpatient new 30 minutes Marcela Suárez MD Work Phone: [facility] Comment on above: Gastroesophageal ref lux disease, unspecified whether esophagitis present (Primary Dx); Colon cancer screening Start: 10-09-2022 Orders Only Marcela Suárez MD Work Phone: [facility] Comment on above: Gastroesophageal ref lux disease, unspecified whether esophagitis present (Primary Dx) Start: 10-04-2022 End: 10-04-2022 Periodic preventive med est patient 18-39 yrs Marcela Suárez MD Work Phone: [facility] Comment on above: Fatty liver (Primary Dx); Prediabetes; Morbid obesity with body mass index (BMI) of 40.0 or higher (HCC); Anxiety and depression; Gout, unspecified cause, unspecified chronicity, unspecified site; LYNDA (obstructive sleep apnea); Colon cancer screening; Encounter for screening for HIV; Encounter for hepatitis C screening test for low risk patient; Sebaceous cyst Start: 09-17-2022 Refill Yumiko Allen MA [facility] Start: 03-01-2022 Refill Rolanda Dow RN [facility] Start: 05-15-2021 End: 05-15-2021 Emergency department patient visit Daphnie Lisa [facility] Emergency 04 Start: 01-16-2021 End: 01-16-2021 Refill Sadaf Rogers MA [facility] Start: 01-16-2021 End: 01-16-2021 Office outpatient new 45 minutes Marcela Suárez MD Work Phone: [facility] Comment on above: Gastroesophageal ref lux disease, unspecified whether esophagitis present (Primary Dx); Prediabetes; Fatty liver; Gout, unspecified cause, unspecified chronicity, unspecified site; Anxiety and depression; Morbid obesity with body mass index (BMI) of 40.0 or higher (HCC) Start: 02-22-2020 End: 06-04-2020 Patient encounter procedure REJI CANDELARIO Facility:[facility] Start: 04-13-2019 End: 04-13-2019 Patient encounter procedure SANA HAN [facility] Start: 12-04-2018 Patient encounter procedure Facility:[id number] Procedures Date Procedure Procedure Detail Performing Clinician Start: 02-03-2025 Radiologic exam ches t 2 views Millicent Yip MASTICATOR-PRINCIPAL LIBRARIAN Work Phone: Start: 02-03-2025 Complete blood count with white cell differential, automated Millicent Yip MASTICATOR-PRINCIPAL LIBRARIAN Work Phone: Start: 02-03-2025 Comprehensive metabo lic panel Millicent Yip MASTICATOR-PRINCIPAL LIBRARIAN Work Phone: Start: 02-03-2025 Ecg routine ecg w/le ast 12 lds trcg only w/o i&r Josh Lanza MD Work Phone: Start: 12-29-2024 Arthrocentesis aspir &/inj interm jt/burs w/o us Marcello Quiles MD Work Phone: Start: 10-08-2024 Mri any jt upper ext remity w/o contrast matrl Ignacio CACERES Work Phone: Plan of Treatment Date Care Activity Detail Author Start: 2061 RSV Vaccines (1 - 1-dose 75+ series) RSV Vaccines (1 - 1-dose 75+ series) [facility] Start: 2036 Administration of herpes zoster vaccine Zoster Vaccines (1 of 2) [facility] Start: 08-27-2028 Tetanus vaccination Tetanus: Every 10yrs [facility] Start: 08-27-2028 Vaccination for diphtheria, pertussis, and tetanus Tetanus/Diphtheria/Pertussis (2 - Td or Tdap) [facility] Start: 09-07-2025 End: 09-07-2025 Patient encounter procedure 09/07/2025 3:00 PM EST Office Visit [facility] [address] [place] [phone] Justo Lewis DO [address] [address] [facility] Start: 08-28-2025 Hepatitis B vaccination HEP B VACCINE (1 of 3 - 19+ 3-dose series) [facility] Comment on above: Postponed from 2005 (patient prefe william) Start: 06-02-2025 End: 06-02-2025 Patient encounter procedure 06/02/2025 9:00 AM EDT Office Visit [facility] [address] [phone] Justo Lewis, DO [address] [address] Monserrat Schmidt, JORGE ALBERTO [address] [place] [phone] [facility] Start: 05-10-2025 COVID-19 Vaccine ( season) COVID-19 Vaccine ( season) [facility] Start: 05-10-2025 COVID-19 Vaccine ( season) COVID-19 Vaccine ( season) [facility] Start: 05-10-2025 Influenza vaccination Influenza Vaccine (#1) [facility] Start: 03-30-2025 End: 03-30-2025 Patient encounter procedure 03/30/2025 3:30 PM EDT Office Visit [facility] [address] [place] [address] Marcello Quiles MD [address] [place] [address] [facility] Start: 02-25-2025 End: 02-25-2025 Patient encounter procedure 02/25/2025 1:00 PM EDT Office Visit [facility] Internal Medicine [address] [phone] Ignacio Umanzor PA [address] [address] [facility] Start: 12-02-2024 Tetanus vaccination TETANUS [facility] Comment on above: Postponed from 1986 (patient prefe rence) Start: 11-17-2024 End: 11-17-2024 Patient encounter procedure 11/17/2024 1:00 PM EDT Office Visit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 no LE edema; bilateral legs without bruising but tenderness over left matt Back: +paraspinal hypertonicity and TTP; no lamberto tenderness Psych: normal mood, congruent affect AUTHENTICATED BY MASHA AYALA, ON 07/20/2025 11:34:46 [facility] 05-27-2025 Evaluation + Plan note Associated Problem(s): 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 His insurance is changed and he needs a referral to a new orthopedic surgeon. MRI wrist 10/09/2024. Hx steroid injection, which helped for a few weeks.Topical pain relievers don't help. Wrist exercises and chiropractic have not been helpful.. Brace mildly helpful. 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 His insurance is changed and he needs a referral to a new orthopedic surgeon. MRI wrist 10/09/2024. Hx steroid injection, which helped for a few weeks.Topical pain relievers don't help. Wrist exercises and chiropractic have not been helpful.. Brace mildly helpful. - Referred to Ortho today Associated Problem(s): GERD (gastroesophageal reflux disease) Previously with Dr. Morelos. He was planning to undergo EGD, but this was never completed. Previously on omeprazole 20 mg daily, but not currently on any medication. - Start famotidine 20 mg twice daily as needed - Advised patient to call Dr. Alarcon's office for timely follow-up documented in this encounter [facility] 05-27-2025 Evaluation + Plan note Associated Problem(s): GERD (gastroesophageal reflux disease) Previously with Dr. Morelos. He was planning to undergo EGD, but this was never completed. Previously on omeprazole 20 mg daily, but not currently on any medication. - Start famotidine 20 mg twice daily as needed - Advised patient to call Dr. Alarcon's office for timely follow-up [facility] 05-19-2025 Instructions Justo Lewis DO - 05/19/2025 3:[address] Morelos's office for a follow up appointment. documented in this encounter [facility] 05-19-2025 Note Assessment/Plan: GERD (gastroesophageal reflux disease) Previously with Dr. Morelos. He was planning to undergo EGD, but this was never completed. Previously on omeprazole 20 mg daily, but not currently on any medication. - Start famotidine 20 mg twice daily as needed - Advised patient to call Dr. 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 His insurance is changed and he needs a referral to a new orthopedic surgeon. MRI wrist 10/09/2024. Hx steroid injection, which helped for a few weeks.Topical pain relievers don't help. Wrist exercises and chiropractic have not been helpful.. Brace mildly helpful. - Referred to Ortho today Follow-up in 3 months for annual exam/establish care with new PCP Subjective: Austen Morrison is a 39 y.o. male Chief Complaint Patient presents with Establish Care Wrist Pain Ulnar abutment syndrome Patient presents for multiple concerns. He continues having left wrist pain. His insurance is changed and he needs a referral to a new orthopedic surgeon. MRI wrist 10/09/2024 showing mild ulnar positive variance the left wrist. There is associated thinning of the radial aspect of the left trigonal fibrocartilage. There is fluid within the left distal radioulnar joint. The left dorsal and volar radioulnar ligaments are intact. Intact left knee scapholunate and lunotriquetral ligaments. Very trace tenosynovitis of the left second extensor compartment at the level of the distal radius. He saw ortho who gave steroid injection, which helped for a few weeks. Topical pain relievers don't help. He has done wrist exercises which weren't helpful. Chiropractic didn't help. He has worn a brace. GERD Previously with Dr. Morelos. He was planning to undergo EGD, but this was never completed. Previously on omeprazole 20 mg daily, but not currently on any medication. The following portions of the patient's history were reviewed and updated as appropriate: allergies, current medications, past family history, past medical history, past social history, past surgical history and problem list. Review of Systems Objective: PACU Vitals 05/19/25 1500 BP: (!) 138/90 Pulse: Resp: Temp: SpO2: PainSc: PainLoc: Physical Exam Constitutional: General: He is not in acute distress. Appearance: Normal appearance. He is not ill-appearing, toxic-appearing or diaphoretic. HENT: Head: Normocephalic and atraumatic. Eyes: General: No scleral icterus. Cardiovascular: Rate and Rhythm: Normal rate and regular rhythm. Heart sounds: No murmur heard. No gallop. Skin: General: Skin is warm and dry. Coloration: Skin is not jaundiced or pale. Neurological: General: No focal deficit present. Mental Status: He is alert. Psychiatric: Mood and Affect: Mood normal. For any new medications prescribed today, patient was educated about indications for the medication, how to take the medication and potential side effects of the medications. My ongoing relationship with Austen Morrison requires continued responsibility and cognitive effort of being the focal point for all services related to chronic condition(s). Justo Lewis, DO AUTHENTICATED BY JUSTO LEWIS, ON 05/27/2025 22:47:09 [facility] 05-19-2025 History of Present illness Narrative Assessment/Plan: GERD (gastroesophageal reflux disease) Previously with Dr. Morelos. He was planning to undergo EGD, but this was never completed. Previously on omeprazole 20 mg daily, but not currently on any medication. - Start famotidine 20 mg twice daily as needed - Advised patient to call Dr. 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 His insurance is changed and he needs a referral to a new orthopedic surgeon. MRI wrist 10/09/2024. Hx steroid injection, which helped for a few weeks.Topical pain relievers don't help. Wrist exercises and chiropractic have not been helpful.. Brace mildly helpful. - Referred to Ortho today Follow-up in 3 months for annual exam/establish care with new PCP Subjective: Austen Morrison is a 39 y.o. male Chief Complaint Patient presents with Establish Care Wrist Pain Ulnar abutment syndrome Patient presents for multiple concerns. He continues having left wrist pain. His insurance is changed and he needs a referral to a new orthopedic surgeon. MRI wrist 10/09/2024 showing mild ulnar positive variance the left wrist. There is associated thinning of the radial aspect of the left trigonal fibrocartilage. There is fluid within the left distal radioulnar joint. The left dorsal and volar radioulnar ligaments are intact. Intact left knee scapholunate and lunotriquetral ligaments. Very trace tenosynovitis of the left second extensor compartment at the level of the distal radius. He saw ortho who gave steroid injection, which helped for a few weeks. Topical pain relievers don't help. He has done wrist exercises which weren't helpful. Chiropractic didn't help. He has worn a brace. GERD Previously with Dr. Morelos. He was planning to undergo EGD, but this was never completed. Previously on omeprazole 20 mg daily, but not currently on any medication. The following portions of the patient's history were reviewed and updated as appropriate: allergies, current medications, past family history, past medical history, past social history, past surgical history and problem list. Review of Systems Objective: PACU Vitals 05/19/25 1500 BP: (!) 138/90 Pulse: Resp: Temp: SpO2: PainSc: PainLoc: Physical Exam Constitutional: General: He is not in acute distress. Appearance: Normal appearance. He is not ill-appearing, toxic-appearing or diaphoretic. HENT: Head: Normocephalic and atraumatic. Eyes: General: No scleral icterus. Cardiovascular: Rate and Rhythm: Normal rate and regular rhythm. Heart sounds: No murmur heard. No gallop. Skin: General: Skin is warm and dry. Coloration: Skin is not jaundiced or pale. Neurological: General: No focal deficit present. Mental Status: He is alert. Psychiatric: Mood and Affect: Mood normal. For any new medications prescribed today, patient was educated about indications for the medication, how to take the medication and potential side effects of the medications. My ongoing relationship with Austen Morrison requires continued responsibility and cognitive effort of being the focal point for all services related to chronic condition(s). Justo Lewis DO documented in this encounter [facility] 02-03-2025 Physician Emergency department Note Emergency Department Report [facility] EMERGENCY DEPARTMENT Service Date:.02/03/25 PCP: Ignacio Umanzor Chief Complaint: Chief Complaint Patient presents with Chest Pain Hypertension Pt reports his wive is and has been having to check her BP so he checked his and it was 160's over 120's. He also reports some chest tightness on his left side since last night and pressure in his head behind his eyes. Also a headache. HPI Austen Morrison is a 39 y.o. male presents to the ED today due to chest tightness and elevated blood pressure. Patient states that he has been drinking his blood pressure at home has been 130s over 90s. He states he has had some chest tightness as well as some headache and pain behind the eyes. He denies any cough, shortness of breath. He has been eating and drinking without difficulty. He denies any previous history of blood pressure problems. Review of Systems: Review of Systems Constitutional: Negative. HENT: Negative. Eyes: Negative. Respiratory: Positive for chest tightness. Cardiovascular: Negative. Gastrointestinal: Negative. Musculoskeletal: Negative. Skin: Negative. Neurological: Positive for headaches. Psychiatric/Behavioral: Negative. Past Medical History: Past Medical History: Diagnosis Date Anxiety and depression 01/16/2021 Last Assessment & Plan: Significantly improved with moving on with the divorce process. Currently off medications and not on any counseling services. Continue to monitor Asthma GERD (gastroesophageal reflux disease) Gout Hypoglycemia, unspecified 08/29/2023 LYNDA (obstructive sleep apnea) Past Surgical History: Past Surgical History: Procedure Laterality Date APPENDECTOMY TONSILLECTOMY Allergies: Allergies Allergen Reactions *Seasonal Cat Dander Raspberry Sertraline Other Reaction(s): Unknown Sulfa Antibiotics Medications: Patient's Medications New Prescriptions No medications on file Previous Medications ALLOPURINOL 100 MG TABLET Take 1 tablet by mouth 2 times daily. GINKGO BILOBA EXTRACT PO Take by mouth. MELATONIN 2.5 MG CHEW TAB Chew. OMEPRAZOLE [address] CAPSULE Take 1 capsule by mouth daily. Modified Medications No medications on file Discontinued Medications No medications on file Family History: Family History Problem Relation Age of Onset Diabetes Father Colorectal Cancer Paternal Uncle Cancer- Other Maternal Grandfather Heart Disease - Other Paternal Grandfather Colorectal Cancer Paternal Grandfather Diabetes Paternal Grandfather Social History: Social History Socioeconomic History Marital status: Spouse name: Not on file Number of children: Not on file Years of education: Not on file Highest education level: Not on file Occupational History Occupation: Owns [employer] Tobacco Use Smoking status: Former Types: Cigarettes Smokeless tobacco: Never Vaping Use Vaping status: Never Used Substance and Sexual Activity Alcohol use: Not Currently Comment: Occasionally Drug use: Not Currently Sexual activity: Yes Partners: Female Other Topics Concern Not on file Social History Narrative Not on file Social Drivers of Health Financial Resource Strain: Low Risk (10/04/2022) Received from [facility] Overall Financial Resource Strain (CARDIA) Difficulty of Paying Living Expenses: Not very hard Food Insecurity: No Food Insecurity (10/04/2022) Received from [facility] Hunger Vital Sign Worried About Running Out of Food in the Last Year: Never true Ran Out of Food in the Last Year: Never true Transportation Needs: No Transportation Needs (10/04/2022) [facility] PRAPARE - Transportation Lack of Transportation (Medical): No Lack of Transportation (Non-Medical): No Physical Activity: Not on file Stress: Not on file Social Connections: Unknown (10/04/2022) Re[facility] from [facility] Social Connection and Isolation Panel [NHANES] Frequency of Communication with Friends and Family: Not on file Frequency of Social Gatherings with Friends and Family: Once a week Attends [employer] Services: Not on file Active Member of Clubs or Organizations: Not on file Attends Club or Organization Meetings: Not on file Marital Status: Not on file Personal Safety: Not on file Housing Stability: Not on file Physical Exam: Physical Exam Vitals and nursing note reviewed. Constitutional: General: He is not in acute distress. Appearance: Normal appearance. He is not ill-appearing or toxic-appearing. HENT: Head: Normocephalic. Right Ear: External ear normal. Left Ear: External ear normal. Nose: Nose normal. Eyes: Pupils: Pupils are equal, round, and reactive to light. Cardiovascular: Rate and Rhythm: Normal rate. Heart sounds: Normal heart sounds. Pulmonary: Effort: Pulmonary effort is normal. Breath sounds: Normal breath sounds. Abdominal: General: There is no distension. Musculoskeletal: General: Normal range of motion. Cervical back: Normal range of motion. Skin: General: Skin is warm and dry. Capillary Refill: Capillary refill takes less than 2 seconds. Neurological: General: No focal deficit present. Mental Status: He is alert. Psychiatric: Behavior: Behavior normal. Vital Signs During ED Visit Patient Vitals for the past 24 hrs: BP Temp Temp src Pulse Resp SpO2 Height Weight 02/03/25 1033 163/75 -- -- 84 18 94 % -- -- 02/03/25 1016 143/89 -- -- 72 16 95 % -- -- 02/03/25 1007 -- -- -- -- -- 98 % -- -- 02/03/25 1004 -- -- -- -- -- -- 1.803 m (5' 11) 131 kg (288 lb 11.2 oz) 02/03/25 1003 (!) 141/105 97.8 F (36.6 C) Oral 83 18 97 % -- -- Orders/Results: Orders Placed This Encounter XR CHEST PA AND LATERAL 2 VIEWS Troponin I, High sensitivity CBC, EDIF, PLATELET COMPREHENSIVE METABOLIC PANEL AMB REFERRAL TO FAMILY PRACTICE ECG Results for orders placed or performed during the hospital encounter of 02/03/25 Troponin I, High sensitivity Result Value Ref Range TROPONIN I, HIGH SENSITIVITY 4 0 - 20 pg/mL CBC, EDIF, PLATELET Result Value Ref Range WBC (WHITE BLOOD COUNT) 7.9 3.6 - 11.0 10*3/uL RBC 5.41 4.0 - 6.1 10*6/uL HEMOGLOBIN (HGB) 15.9 14.0 - 18.0 G/DL HEMATOCRIT (HCT) 45.4 42.0 - 52.0 % Mean Cell Volume 84.0 80.0 - 100.0 FL Mean Cell HGB 29.4 26.0 - 35.0 PG Mean Cell HGB Concentration 35.0 27.0 - 37.0 G/DL RBC Distribution 13.4 11.5 - 14.5 % PLATELET COUNT 263 130 - 400 10*3/uL Mean Platelet Volume 8.2 7.4 - 11.0 FL DIFFERENTIAL TYPE AUTO DIFF % NEUTROPHILS 62.7 37.0 - 75.0 % LYMPHOCYTE 30.0 20.0 - 55.0 % MONOCYTE % 5.1 0.0 - 10.0 % EOSINOPHIL % 1.5 0.0 - 11.0 % BASOPHIL % 0.7 0.0 - 2.0 % Absolute Neutrophil Count 5.0 1.4 - 6.5 10*3/uL LYMPHOCYTES, ABSOLUTE 2.4 1.2 - 3.4 10*3/uL MONOCYTES, ABSOLUTE 0.4 0.0 - 0.7 10*3/uL ABSOLUTE EOSINOPHIL COUNT 0.1 0.0 - 0.7 10*3/uL ABSOLUTE BASOPHIL COUNT 0.1 0.0 - 0.2 10*3/uL COMPREHENSIVE METABOLIC PANEL Result Value Ref Range Glucose 142 (H) 70 - 100 MG/DL BUN 15 7 - 20 MG/DL CREATININE SERUM 1.00 0.70 - 1.20 MG/DL SODIUM 140 137 - 145 MMOL/L Potassium 4.5 3.5 - 5.1 MMOL/L CHLORIDE 100 98 - 107 MMOL/L CALCIUM 9.6 8.4 - 10.2 MG/DL PROTEIN, TOTAL 7.2 6.3 - 8.2 GM/DL Albumin 4.7 3.5 - 5.0 G/dl BILIRUBIN, TOTAL 1.2 0.2 - 1.3 MG/DL AST 35 17 - 59 IU/L ALKALINE PHOSPHATASE 50 38 - 126 IU/L CARBON DIOXIDE (CO2) 33 (H) 22 - 30 MMOL/L A/G Ratio 1.9 RATIO ALT 55 (H) <50 IU/L ESTIMATED GFR, NON AMER 89 ml/min/1.73sq.m ESTIMATED GFR, 108 ml/min/1.73sq.m GFR COMMENT Average GFR for 30-39 years old = 107. Radiographic Imaging XR CHEST PA AND LATERAL 2 VIEWS Procedures: Procedures Moderate Sedation Procedure: No ED Summary/MDM Patient presents the ER with complaints of chest tightness and elevated blood pressure. Patient was nontoxic in appearance and converses without difficulty. Lab work is grossly unremarkable. Chest x-ray does not show any acute findings. Decrease salt, increased physical activity and follow up with primary care. If any worsening symptoms return to ER. Patient is in agreement with the plan and he is discharged home stable. Medical Decision Making Amount and/or Complexity of Data Reviewed Labs: ordered. Radiology: ordered. Clinical Impression: 1. Elevated BP without diagnosis of hypertension 2. Chest tightness No follow-ups on file. New Prescriptions No medications on file Discontinued Medications No medications on file An After Visit Summary was printed and given to the patient with above information. . . ARIAN Morgan 02/03/25 1102 Cosigned by Josh Lanza MD at 02/03/2025 1:27 PM EDT [facility] 02-03-2025 Emergency department Note Emergency Department Report [facility] EMERGENCY DEPARTMENT Service Date:.02/03/25 PCP: Ignacio Umanzor Chief Complaint: Chief Complaint Patient presents with Chest Pain Hypertension Pt reports his wive is and has been having to check her BP so he checked his and it was 160's over 120's. He also reports some chest tightness on his left side since last night and pressure in his head behind his eyes. Also a headache. ABRAHAN Morrison is a 39 y.o. male presents to the ED today due to chest tightness and elevated blood pressure. Patient states that he has been drinking his blood pressure at home has been 130s over 90s. He states he has had some chest tightness as well as some headache and pain behind the eyes. He denies any cough, shortness of breath. He has been eating and drinking without difficulty. He denies any previous history of blood pressure problems. Review of Systems: Review of Systems Constitutional: Negative. HENT: Negative. Eyes: Negative. Respiratory: Positive for chest tightness. Cardiovascular: Negative. Gastrointestinal: Negative. Musculoskeletal: Negative. Skin: Negative. Neurological: Positive for headaches. Psychiatric/Behavioral: Negative. Past Medical History: Past Medical History: Diagnosis Date Anxiety and depression 01/16/2021 Last Assessment & Plan: Significantly improved with moving on with the divorce process. Currently off medications and not on any counseling services. Continue to monitor Asthma GERD (gastroesophageal reflux disease) Gout Hypoglycemia, unspecified 08/29/2023 LYNDA (obstructive sleep apnea) Past Surgical History: Past Surgical History: Procedure Laterality Date APPENDECTOMY TONSILLECTOMY Allergies: Allergies Allergen Reactions *Seasonal Cat Dander Raspberry Sertraline Other Reaction(s): Unknown Sulfa Antibiotics Medications: Patient's Medications New Prescriptions No medications on file Previous Medications ALLOPURINOL 100 MG TABLET Take 1 tablet by mouth 2 times daily. GINKGO BILOBA EXTRACT PO Take by mouth. MELATONIN 2.5 MG CHEW TAB Chew. OMEPRAZOLE [address] CAPSULE Take 1 capsule by mouth daily. Modified Medications No medications on file Discontinued Medications No medications on file Family History: Family History Problem Relation Age of Onset Diabetes Father Colorectal Cancer Paternal Uncle Cancer- Other Maternal Grandfather Heart Disease - Other Paternal Grandfather Colorectal Cancer Paternal Grandfather Diabetes Paternal Grandfather Social History: Social History Socioeconomic History Marital status: Spouse name: Not on file Number of children: Not on file Years of education: Not on file Highest education level: Not on file Occupational History Occupation: Owns [employer] Tobacco Use Smoking status: Former Types: Cigarettes Smokeless tobacco: Never Vaping Use Vaping status: Never Used Substance and Sexual Activity Alcohol use: Not Currently Comment: Occasionally Drug use: Not Currently Sexual activity: Yes Partners: Female Other Topics Concern Not on file Social History Narrative Not on file Social Drivers of Health Financial Resource Strain: Low Risk (10/04/2022) Received from [facility] Overall Financial Resource Strain (CARDIA) Difficulty of Paying Living Expenses: Not very hard Food Insecurity: No Food Insecurity (10/04/2022) Received from [facility] Hunger Vital Sign Worried About Running Out of Food in the Last Year: Never true Ran Out of Food in the Last Year: Never true Transportation Needs: No Transportation Needs (10/04/2022) Received from [facility] PRAPARE - Transportation Lack of Transportation (Medical): No Lack of Transportation (Non-Medical): No Physical Activity: Not on file Stress: Not on file Social Connections: Unknown (10/04/2022) Received from [facility] Social Connection and Isolation Panel [NHANES] Frequency of Communication with Friends and Family: Not on file Frequency of Social Gatherings with Friends and Family: Once a week Attends [employer] Services: Not on file Active Member of Clubs or Organizations: Not on file Attends Club or Organization Meetings: Not on file Marital Status: Not on file Personal Safety: Not on file Housing Stability: Not on file Physical Exam: Physical Exam Vitals and nursing note reviewed. Constitutional: General: He is not in acute distress. Appearance: Normal appearance. He is not ill-appearing or toxic-appearing. HENT: Head: Normocephalic. Right Ear: External ear normal. Left Ear: External ear normal. Nose: Nose normal. Eyes: Pupils: Pupils are equal, round, and reactive to light. Cardiovascular: Rate and Rhythm: Normal rate. Heart sounds: Normal heart sounds. Pulmonary: Effort: Pulmonary effort is normal. Breath sounds: Normal breath sounds. Abdominal: General: There is no distension. Musculoskeletal: General: Normal range of motion. Cervical back: Normal range of motion. Skin: General: Skin is warm and dry. Capillary Refill: Capillary refill takes less than 2 seconds. Neurological: General: No focal deficit present. Mental Status: He is alert. Psychiatric: Behavior: Behavior normal. Vital Signs During ED Visit Patient Vitals for the past 24 hrs: BP Temp Temp src Pulse Resp SpO2 Height Weight 02/03/25 1033 163/75 -- -- 84 18 94 % -- -- 02/03/25 1016 143/89 -- -- 72 16 95 % -- -- 02/03/25 1007 -- -- -- -- -- 98 % -- -- 02/03/25 1004 -- -- -- -- -- -- 1.803 m (5' 11) 131 kg (288 lb 11.2 oz) 02/03/25 1003 (!) 141/105 97.8 F (36.6 C) Oral 83 18 97 % -- -- Orders/Results: Orders Placed This Encounter XR CHEST PA AND LATERAL 2 VIEWS Troponin I, High sensitivity CBC, EDIF, PLATELET COMPREHENSIVE METABOLIC PANEL AMB REFERRAL TO FAMILY PRACTICE ECG Results for orders placed or performed during the hospital encounter of 02/03/25 Troponin I, High sensitivity Result Value Ref Range TROPONIN I, HIGH SENSITIVITY 4 0 - 20 pg/mL CBC, EDIF, PLATELET Result Value Ref Range WBC (WHITE BLOOD COUNT) 7.9 3.6 - 11.0 10*3/uL RBC 5.41 4.0 - 6.1 10*6/uL HEMOGLOBIN (HGB) 15.9 14.0 - 18.0 G/DL HEMATOCRIT (HCT) 45.4 42.0 - 52.0 % Mean Cell Volume 84.0 80.0 - 100.0 FL Mean Cell HGB 29.4 26.0 - 35.0 PG Mean Cell HGB Concentration 35.0 27.0 - 37.0 G/DL RBC Distribution 13.4 11.5 - 14.5 % PLATELET COUNT 263 130 - 400 10*3/uL Mean Platelet Volume 8.2 7.4 - 11.0 FL DIFFERENTIAL TYPE AUTO DIFF % NEUTROPHILS 62.7 37.0 - 75.0 % LYMPHOCYTE 30.0 20.0 - 55.0 % MONOCYTE % 5.1 0.0 - 10.0 % EOSINOPHIL % 1.5 0.0 - 11.0 % BASOPHIL % 0.7 0.0 - 2.0 % Absolute Neutrophil Count 5.0 1.4 - 6.5 10*3/uL LYMPHOCYTES, ABSOLUTE 2.4 1.2 - 3.4 10*3/uL MONOCYTES, ABSOLUTE 0.4 0.0 - 0.7 10*3/uL ABSOLUTE EOSINOPHIL COUNT 0.1 0.0 - 0.7 10*3/uL ABSOLUTE BASOPHIL COUNT 0.1 0.0 - 0.2 10*3/uL COMPREHENSIVE METABOLIC PANEL Result Value Ref Range Glucose 142 (H) 70 - 100 MG/DL BUN 15 7 - 20 MG/DL CREATININE SERUM 1.00 0.70 - 1.20 MG/DL SODIUM 140 137 - 145 MMOL/L Potassium 4.5 3.5 - 5.1 MMOL/L CHLORIDE 100 98 - 107 MMOL/L CALCIUM 9.6 8.4 - 10.2 MG/DL PROTEIN, TOTAL 7.2 6.3 - 8.2 GM/DL Albumin 4.7 3.5 - 5.0 G/dl BILIRUBIN, TOTAL 1.2 0.2 - 1.3 MG/DL AST 35 17 - 59 IU/L ALKALINE PHOSPHATASE 50 38 - 126 IU/L CARBON DIOXIDE (CO2) 33 (H) 22 - 30 MMOL/L A/G Ratio 1.9 RATIO ALT 55 (H) <50 IU/L ESTIMATED GFR, NON AMER 89 ml/min/1.73sq.m ESTIMATED GFR, 108 ml/min/1.73sq.m GFR COMMENT Average GFR for 30-39 years old = 107. Radiographic Imaging XR CHEST PA AND LATERAL 2 VIEWS Procedures: Procedures Moderate Sedation Procedure: No ED Summary/MDM Patient presents the ER with complaints of chest tightness and elevated blood pressure. Patient was nontoxic in appearance and converses without difficulty. Lab work is grossly unremarkable. Chest x-ray does not show any acute findings. Decrease salt, increased physical activity and follow up with primary care. If any worsening symptoms return to ER. Patient is in agreement with the plan and he is discharged home stable. Medical Decision Making Amount and/or Complexity of Data Reviewed Labs: ordered. Radiology: ordered. Clinical Impression: 1. Elevated BP without diagnosis of hypertension 2. Chest tightness No follow-ups on file. New Prescriptions No medications on file Discontinued Medications No medications on file An After Visit Summary was printed and given to the patient with above information. . . ARIAN Morgan 02/03/25 1102 Cosigned by Josh Lanza MD at 02/03/2025 1:27 PM EDT documented in this encounter [facility] 02-03-2025 History of Present illness Narrative ABRAHAN Morrison 1985 presents to the [facility] with No chief complaint on file. Patient presents for chest pain and high blood pressure that started today. History Allergies Allergen Reactions *Seasonal Cat Dander Raspberry Sertraline Other Reaction(s): Unknown Sulfa Antibiotics Current Outpatient Medications Medication Sig Allopurinol 100 MG tablet Take 1 tablet by mouth 2 times daily. GINKGO BILOBA EXTRACT PO Take by mouth. Melatonin 2.5 MG Chew Tab Chew. omeprazole [address] capsule Take 1 capsule by mouth daily. Family History Problem Relation Age of Onset Diabetes Father Colorectal Cancer Paternal Uncle Cancer- Other Maternal Grandfather Heart Disease - Other Paternal Grandfather Colorectal Cancer Paternal Grandfather Diabetes Paternal Grandfather Past Medical History: Diagnosis Date Anxiety and depression 01/16/2021 Last Assessment & Plan: Significantly improved with moving on with the divorce process. Currently off medications and not on any counseling services. Continue to monitor Asthma GERD (gastroesophageal reflux disease) Gout Hypoglycemia, unspecified 08/29/2023 LYNDA (obstructive sleep apnea) Past Surgical History: Procedure Laterality Date APPENDECTOMY TONSILLECTOMY Social History Socioeconomic History Marital status: Spouse name: Not on file Number of children: Not on file Years of education: Not on file Highest education level: Not on file Occupational History Occupation: Owns [employer] Tobacco Use Smoking status: Former Types: Cigarettes Smokeless tobacco: Never Vaping Use Vaping status: Never Used Substance and Sexual Activity Alcohol use: Not Currently Comment: Occasionally Drug use: Not Currently Sexual activity: Yes Partners: Female Other Topics Concern Not on file Social History Narrative Not on file Social Drivers of Health Financial Resource Strain: Low Risk (10/04/2022) Received from [facility] Overall Financial Resource Strain (CARDIA) Difficulty of Paying Living Expenses: Not very hard Food Insecurity: No Food Insecurity (10/04/2022) Received from [facility] Hunger Vital Sign Worried About Running Out of Food in the Last Year: Never true Ran Out of Food in the Last Year: Never true Transportation Needs: No Transportation Needs (10/04/2022) Received from [facility] PRAPARE - Transportation Lack of Transportation (Medical): No Lack of Transportation (Non-Medical): No Physical Activity: Not on file Stress: Not on file Social Connections: Unknown (10/04/2022) Received from [facility] Social Connection and Isolation Panel [NHANES] Frequency of Communication with Friends and Family: Not on file Frequency of Social Gatherings with Friends and Family: Once a week Attends [employer] Services: Not on file Active Member of Clubs or Organizations: Not on file Attends Club or Organization Meetings: Not on file Marital Status: Not on file Personal Safety: Not on file Housing Stability: Not on file ROS Review of Systems Cardiovascular: Positive for chest pain. 8 systems reviewed with patient, negative unless specifically mentioned in history of present illness PHYSICAL EXAM There were no vitals taken for this visit. Physical Exam Constitutional: General: He is not in acute distress. Appearance: Normal appearance. He is not ill-appearing, toxic-appearing or diaphoretic. Neurological: Mental Status: He is alert. RESULTS Recent Results (from the past 2 hours) CBC, EDIF, PLATELET Collection Time: 02/03/25 10:12 AM Result Value Ref Range WBC (WHITE BLOOD COUNT) 7.9 3.6 - 11.0 10*3/uL RBC 5.41 4.0 - 6.1 10*6/uL HEMOGLOBIN (HGB) 15.9 14.0 - 18.0 G/DL HEMATOCRIT (HCT) 45.4 42.0 - 52.0 % Mean Cell Volume 84.0 80.0 - 100.0 FL Mean Cell HGB 29.4 26.0 - 35.0 PG Mean Cell HGB Concentration 35.0 27.0 - 37.0 G/DL RBC Distribution 13.4 11.5 - 14.5 % PLATELET COUNT 263 130 - 400 10*3/uL Mean Platelet Volume 8.2 7.4 - 11.0 FL DIFFERENTIAL TYPE AUTO DIFF % NEUTROPHILS 62.7 37.0 - 75.0 % LYMPHOCYTE 30.0 20.0 - 55.0 % MONOCYTE % 5.1 0.0 - 10.0 % EOSINOPHIL % 1.5 0.0 - 11.0 % BASOPHIL % 0.7 0.0 - 2.0 % Absolute Neutrophil Count 5.0 1.4 - 6.5 10*3/uL LYMPHOCYTES, ABSOLUTE 2.4 1.2 - 3.4 10*3/uL MONOCYTES, ABSOLUTE 0.4 0.0 - 0.7 10*3/uL ABSOLUTE EOSINOPHIL COUNT 0.1 0.0 - 0.7 10*3/uL ABSOLUTE BASOPHIL COUNT 0.1 0.0 - 0.2 10*3/uL XR CHEST PA AND LATERAL 2 VIEWS Collection Time: 02/03/25 10:34 AM Result Value Ref Range BSA 2.47 m2 ASSESSMENT/PLAN 1. Chest pain, unspecified type No orders of the defined types were placed in this encounter. Patient presents for high blood pressure and chest pain that began today. I did educate patient on limitations of walk-in clinic such as inability to do EKG or lab work. Discussed limitations of the urgent care setting for diagnostic imaging and laboratory studies. Advised patient that based on current complaints, concerns and history, evaluation and treatment in ER is appropriate. Patient hemodynamically stable for transfer to the ER. Patient is agreeable to plan and signed the white sheet. Patient reports he feels comfortable driving himself to ER. Patient declined a squad. ARIAN Zamarripa 02/03/2025 documented in this encounter [facility] 12-29-2024 History of Present illness Narrative Review of Systems Constitutional: Negative for chills, fatigue and fever. Eyes: Negative for visual disturbance. Respiratory: Negative for shortness of breath. Cardiovascular: Negative for chest pain. Gastrointestinal: Negative for abdominal pain and blood in stool. Endocrine: Negative for polydipsia. Genitourinary: Negative for hematuria. Musculoskeletal: Positive for arthralgias. Negative for myalgias. Neurological: Negative for seizures. Hematological: Does not bruise/bleed easily. Psychiatric/Behavioral: Negative for dysphoric mood. Associated Order(s): MEDIUM JOINT/BURSA INJECTION AND/OR ASPIRATION: L ulnocarpal Post-Procedure Diagnose(s): Left wrist pain MEDIUM JOINT/BURSA INJECTION AND/OR ASPIRATION: L ulnocarpal Date/Time: 12/29/2024 3:00 PM Performed by: Marcello Quiles MD Authorized by: Marcello Quiles MD Supporting Documentation Indications: pain Procedure Details: Location: wrist - L ulnocarpal Needle size: 25 G Approach: ulnar Medication Verification: I have personally verified and performed the final check of the medication(s) used in this procedure prior to administration. The following items were included during the verification process for medication(s) administered: drug name, strength, volume, expiration, physical integrity and appearance of the medication(s). Medications administered: 40 mg methylPREDNISolone acetate 40 MG/ML; 2 mL Lidocaine 10 mg/mL; 2 mL ROPivacaine 1 % Patient tolerance: patient tolerated the procedure well with no immediate complications Consent: Consent was obtained prior to the procedure after discussion of the risks, benefits and alternatives, and expected outcomes were discussed with the patient. The possibilities of reaction to medication, bleeding, infection, the need for additional procedures, failure to diagnosis a condition, and creating a complication requiring operation were discussed with the patient. The patient concurred with the proposed plan, giving consent. (Informed consent is obtained. Risks and benefits have been discussed. The patient understands and wishes to proceed. ) Preparation: Patient was prepped in the usual sterile fashion. The patient was prepped with alcohol. 12/29/24 Chief Complaint Patient presents with Left Wrist - Pain New Patient HPI: Austen is here today in follow up of his left wrist pain he has had since July 2023. He states he fell landing on his wrist and he has had pain since that time. He has worn a brace without significant benefit. He has had an MRI prior to arrival. At this point in time his wrist bothers him daily with certain activities worse than others. Past Medical History: Diagnosis Date Anxiety and depression 01/16/2021 Last Assessment & Plan: Significantly improved with moving on with the divorce process. Currently off medications and not on any counseling services. Continue to monitor Asthma GERD (gastroesophageal reflux disease) Gout Hypoglycemia, unspecified 08/29/2023 LYNDA (obstructive sleep apnea) Past Surgical History: Procedure Laterality Date APPENDECTOMY TONSILLECTOMY Current Outpatient Medications: Allopurinol 100 MG tablet, Take 1 tablet by mouth 2 times daily., Disp: 180 tablet, Rfl: 3 GINKGO BILOBA EXTRACT PO, Take by mouth., Disp: , Rfl: Melatonin 2.5 MG Chew Tab, Chew., Disp: , Rfl: omeprazole [address] capsule, Take 1 capsule by mouth daily., Disp: , Rfl: Allergies Allergen Reactions *Seasonal Cat Dander Raspberry Sertraline Other Reaction(s): Unknown Sulfa Antibiotics Social History Socioeconomic History Marital status: Spouse name: Not on file Number of children: Not on file Years of education: Not on file Highest education level: Not on file Occupational History Occupation: Owns [employer] Tobacco Use Smoking status: Former Types: Cigarettes Smokeless tobacco: Never Vaping Use Vaping status: Never Used Substance and Sexual Activity Alcohol use: Not Currently Comment: Occasionally Drug use: Not Currently Sexual activity: Yes Partners: Female Other Topics Concern Not on file Social History Narrative Not on file Social Drivers of Health Financial Resource Strain: Low Risk (10/04/2022) [facility] Financial Resource Strain (CARDIA) Difficulty of Paying Living Expenses: Not very hard Food Insecurity: No Food Insecurity (10/04/2022) [facility] Hunger Vital Sign Worried About Running Out of Food in the Last Year: Never true Ran Out of Food in the Last Year: Never true Transportation Needs: No Transportation Needs (10/04/2022) [facility] PRAPARE - Transportation Lack of Transportation (Medical): No Lack of Transportation (Non-Medical): No Physical Activity: Not on file Stress: Not on file Social Connections: Unknown (10/04/2022) [facility] Social Connection and Isolation Panel [NHANES] Frequency of Communication with Friends and Family: Not on file Frequency of Social Gatherings with Friends and Family: Once a week Attends [employer] Services: Not on file Active Member of Clubs or Organizations: Not on file Attends Club or Organization Meetings: Not on file Marital Status: Not on file Personal Safety: Not on file Housing Stability: Not on file Family History Problem Relation Age of Onset Diabetes Father Colorectal Cancer Paternal Uncle Cancer- Other Maternal Grandfather Heart Disease - Other Paternal Grandfather Colorectal Cancer Paternal Grandfather Diabetes Paternal Grandfather Review of Systems Constitutional: Negative for chills, fatigue and fever. Eyes: Negative for visual disturbance. Respiratory: Negative for shortness of breath. Cardiovascular: Negative for chest pain. Gastrointestinal: Negative for abdominal pain and blood in stool. Endocrine: Negative for polydipsia. Genitourinary: Negative for hematuria. Musculoskeletal: Positive for arthralgias. Negative for myalgias. Neurological: Negative for seizures. Hematological: Does not bruise/bleed easily. Psychiatric/Behavioral: Negative for dysphoric mood. MEDIUM JOINT/BURSA INJECTION AND/OR ASPIRATION: L ulnocarpal Date/Time: 12/29/2024 3:00 PM Performed by: Marcello Quiles MD Authorized by: Marcello Quiles MD Supporting Documentation Indications: pain Procedure Details: Location: wrist - L ulnocarpal Needle size: 25 G Approach: ulnar Medication Verification: I have personally verified and performed the final check of the medication(s) used in this procedure prior to administration. The following items were included during the verification process for medication(s) administered: drug name, strength, volume, expiration, physical integrity and appearance of the medication(s). Medications administered: 40 mg methylPREDNISolone acetate 40 MG/ML; 2 mL Lidocaine 10 mg/mL; 2 mL ROPivacaine 1 % Patient tolerance: patient tolerated the procedure well with no immediate complications Consent: Consent was obtained prior to the procedure after discussion of the risks, benefits and alternatives, and expected outcomes were discussed with the patient. The possibilities of reaction to medication, bleeding, infection, the need for additional procedures, failure to diagnosis a condition, and creating a complication requiring operation were discussed with the patient. The patient concurred with the proposed plan, giving consent. (Informed consent is obtained. Risks and benefits have been discussed. The patient understands and wishes to proceed. ) Preparation: Patient was prepped in the usual sterile fashion. The patient was prepped with alcohol. Physical Examination: Vitals: 12/29/24 1459 Temp: 98.6 degrees F (37 degrees C) Weight: 131.8 kg (290 lb 9.1 oz) Height: 1.803 m (5' 11) Extremity: Examination today demonstrates point tenderness of the TFCC, pain with forced supination. No ligamentous instability. Good wrist and finger motion otherwise. Diagnostic Studies: X-rays and MRI have been reviewed. He has an ulnar positive variant with what appears to be thinning of his TFCC. Assessment: 1. Left wrist pain consistent with a TFCC tear. Plan: I have injected the wrist today into the TFCC. He tolerates that well. I will see him back in 2 months and make further decisions based on how he is doing at that time. documented in this encounter [facility] 09-21-2024 History of Present illness Narrative Nurse Note: Review of Systems Constitutional: Negative for chills, fatigue, fever and unexpected weight change. HENT: Negative for trouble swallowing. Respiratory: Negative for cough, choking and shortness of breath. Cardiovascular: Negative for chest pain, palpitations and leg swelling. Gastrointestinal: Negative for abdominal distention, abdominal pain, anal bleeding, blood in stool, constipation, diarrhea, nausea, rectal pain and vomiting. Skin: Negative for wound. Neurological: Negative for seizures and numbness. Hematological: Negative for adenopathy. Does not bruise/bleed easily. Psychiatric/Behavioral: The patient is not nervous/anxious. Nursing Assessment: Physical Exam Austen Morrison is a 38 y.o. male Pt is here for a GERD. complains of heartburn complains of regurgitation Current medication/treatments: omeprozole denies Nausea/Vomiting complains of Bloating complains of Diarrhea with greasy foods Prior EGD? Yes Last one about 10 years Images from the original note were not included. Chief Complaint: Chief Complaint Patient presents with New Patient HPI: Mr. Morrison is a 38-year-old male with a past medical history significant for gout obstructive sleep apnea fatty liver disease prediabetes and a BMI of 40.5 who presents to my clinic to discuss his severe gastroesophageal reflux. He has had this for a significant amount of time and does believe it was the getting slowly worse over the course of the last several years. He previously used to manage this with Tums and an occasional omeprazole and now he takes omeprazole daily and states that he feels terrible when he does not take omeprazole. His symptoms are well managed on 20 mg of omeprazole. He last had a EGD over 10 years ago at an outside facility. He states that he was told that he had something wrong with his lower esophageal sphincter but it was not know the specifics. He also has significant issues with intermittent diarrhea. He also has been told that he was fatty liver disease with elevated liver enzymes and elevated bilirubin and he was primary care provider has requested that he have a right upper quadrant ultrasound and liver ultrasound which he was not yet done. He was a former distant smoker but it was not smoked actively for over a year Past Medical History: Diagnosis Date Anxiety and depression 01/16/2021 Last Assessment & Plan: Significantly improved with moving on with the divorce process. Currently off medications and not on any counseling services. Continue to monitor Asthma GERD (gastroesophageal reflux disease) Gout Hypoglycemia, unspecified 08/29/2023 LYNDA (obstructive sleep apnea) Past Surgical History: Procedure Laterality Date APPENDECTOMY TONSILLECTOMY Social History Social History Socioeconomic History Marital status: Spouse name: Not on file Number of children: Not on file Years of education: Not on file Highest education level: Not on file Occupational History Occupation: Owns [employer] Tobacco Use Smoking status: Former Types: Cigarettes Smokeless tobacco: Never Vaping Use Vaping status: Never Used Substance and Sexual Activity Alcohol use: Not Currently Comment: Occasionally Drug use: Not Currently Sexual activity: Yes Partners: Female Other Topics Concern Not on file Social History Narrative Not on file Social Determinants of Health Financial Resource Strain: Low Risk (10/04/2022) Received from [facility] Overall Financial Resource Strain (CARDIA) Difficulty of Paying Living Expenses: Not very hard Food Insecurity: No Food Insecurity (10/04/2022) Received from [facility] Hunger Vital Sign Worried About Running Out of Food in the Last Year: Never true Ran Out of Food in the Last Year: Never true Transportation Needs: No Transportation Needs (10/04/2022) Received from [facility] PRAPARE - Transportation Lack of Transportation (Medical): No Lack of Transportation (Non-Medical): No Physical Activity: Not on file Stress: Not on file Social Connections: Unknown (10/04/2022) Received from [facility] Social Connection and Isolation Panel [NHANES] Frequency of Communication with Friends and Family: Not on file Frequency of Social Gatherings with Friends and Family: Once a week Attends [employer] Services: Not on file Active Member of Clubs or Organizations: Not on file Attends Club or Organization Meetings: Not on file Marital Status: Not on file Intimate Partner Violence: Not on file Housing Stability: Not on file Family History Problem Relation Age of Onset Diabetes Father Colorectal Cancer Paternal Uncle Cancer- Other Maternal Grandfather Heart Disease - Other Paternal Grandfather Colorectal Cancer Paternal Grandfather Diabetes Paternal Grandfather Medications: Current Outpatient Medications Medication Sig Dispense Refill Allopurinol 100 MG tablet Take 1 tablet by mouth 2 times daily. 180 tablet [address] omepraz[address] capsule Take 1 capsule by mouth daily. GINKGO BILOBA EXTRACT PO Take by mouth. Melatonin 2.5 MG Chew Tab Chew. No current facility-administered medications for this visit. Allergies: *seasonal, Cat dander, Raspberry, Sertraline, and Sulfa antibiotics Review of Systems: Per HPI A detailed 14 point review of systems was discussed with the patient and was negative unless otherwise stated above Physical Exam Vital Signs: BP 130/90 Ht 1.803 m (5' 11) Wt 131.8 kg (290 lb 9.6 oz) BMI 40.53 kg/m Smoking Status Former General: Well-developed, well-nourished. Alert and oriented to person, place and time. No acute distress HEENT: Atraumatic, normocephalic, extra ocular muscles intact. No scleral icterus. Neck: Supple Heart: Regular rate and rhythm no murmurs Lungs: Equal chest rise bilaterally without recruitment of accessory muscles. Abdomen: Soft, non-tender, non-distended. No rebound, guarding, or peritoneal signs. Extremities: Non-tender, no edema Laboratory Data: Lab Results Component Value Date WBC 7.4 08/28/2024 HGB 16.1 08/28/2024 HCT 48.1 08/28/2024 PLATELET 236 08/28/2024 MCV 86.1 08/28/2024 Lab Results Component Value Date SODIUM 138 08/28/2024 POTASSIUM 4.4 08/28/2024 CHLORIDE 108 (H) 08/28/2024 CO2 26 08/28/2024 BUN 9 08/28/2024 CREATSERUM 0.81 08/28/2024 GLUCOSE 118 (H) 08/28/2024 Lab Results Component Value Date ALT 65 (H) 08/28/2024 AST 37 08/28/2024 ALKPHOS 38 08/28/2024 BILITOTAL 1.7 (H) 08/28/2024 Diagnostic Imaging: None available for review Impression/Plan: Mr. Morrison a 38-year-old male with symptoms of severe gastroesophageal reflux disease who has not had a endoscopic evaluation in his significant amount of time but it was had worsening symptoms. At this point in time I do think that there are two specific tests that we need to approach. Based off his weight I have explained to him that gastroesophageal reflux does have a component of obesity. I also explained that he has multiple weight related comorbidities and that he would be a very good candidate to consider bariatric surgery. I explained that surgical treatment for gastroesophageal reflux is 50% likely to fail due to his BMI of 40.5. I explained to him that actually a more reasonable approach would be to also consider a referral to a bariatric surgeon and bariatric team as a gastric bypass would help with all of his medical weight related comorbidities as well as help his gastroesophageal reflux. He was not interested at this point in time. As such I do believe that it was reasonable to proceed forward with an EGD to make sure he does not have a hiatal hernia or any Barretts esophagus. At that point in time I also explained to him that I would like him to get a right upper quadrant ultrasound. He was an elevated bilirubin as well as elevated liver enzymes. Although this could be related to underlying liver disease from his obesity I am suspicious that he has underlying choledocholithiasis and would like to get an ultrasound to see if he has stones as I am suspicious that that may be the cause of his elevated liver enzymes as well as elevated bilirubin. He also questioned whether or not he needs a colonoscopic evaluation as he had a grandmother that of colon cancer in her 80s as well as an uncle. I explained to him that he was of higher risk for colon cancer with based off the age of the started would not recommend in proceeding forward earlier than the age of 46. He began to argue with me that if it was indicated he would be happy to pad a pocket and I stated that I do not think anything should be done sooner and the earliest would be at age 41 as it was with the data is currently showing. He states that he will consider this and may want to pay and a pocket of the age of 41. The risks and benefits of an EGD were then talked through to him in detail. He has had the opportunity to ask questions that ultimately were answered to his satisfaction we will plan to proceed forward with an EGD at his earliest convenience Chandana Alcala MD General Surgery [address], [place] [address] Office - [phone] Fax - [phone] documented in this encounter [facility] 09-21-2024 Instructions Linda Rubio LPN - 09/21/2024 2:45 PM EST EGD INSTRUCTIONS Your EGD is scheduled at [place] on Saturday11/11/24. The hospital will call you the day before your scheduled date to tell you what time to arrive. They usually don't call until afternoon. You can call the office after 3pm if you have not heard from the hospital. THE DAY BEFORE: Eat a light/medium dinner. Avoid foods that may upset your stomach. DO NOT DRINK ALCOHOL. NOTHING to eat or drink after midnight. NO TOBACCO PRODUCT AFTER MIDNIGHT. THE MORNING OF: Please consume 12-20oz. of Gatorade 2 hours prior to hospital arrival time. It may be of any flavor except the following colors: Purple, Anderson and Red. Do not wear jewelry, earrings, watches, etc. Wear comfortable clothing and shoes. (no heels). Hold all medications until after procedure. BLOOD THINNERS: Stop taking COUMADIN, PLAVIX, BRILINTA (TICAGRELOR) AND IRON 5 days prior to procedure. Stop taking ELIQUIS and XARELTO 48 hours prior to procedure. Diabetic Medications are NOT to be taken the morning of test. APPETITE SUPPRESSANT AND WEEKLY INSULINS: Stop taking Phentermine or any other appetite suppressants 7 days prior to procedure or procedure will be canceled. This also includes stopping semiglutide (Ozempic and Wegovy), Tirzepatide (Mounjaro) (Zepbound), Trulicity, Victoza, Exenatide (Byetta) and Liraglutide (Saxenda) 7 days prior to procedure or procedure will be canceled. IF TAKING VIAGRA OR CIALIS THAT MUST BE STOPPED 7 DAYS PRIOR TO PROCEDURE OR PROCEDURE WILL BE CANCELED! YOU MUST HAVE A RESPONSIBLE ADULT DRIVE YOU HOME. IF YOU DO NOT HAVE SOMEONE TO DRIVE YOU, YOUR PROCEDURE WILL BE CANCELLED. PUBLIC TRANSPORT IS NOT PERMITTED, UNLESS YOU HAVE A FAMILY MEMBER OR FRIEND WITH YOU. If you have any questions, you become ill or have to cancel your procedure, please call the office at . Prior authorization is performed on all procedures and surgeries, but coverage and benefits is up to the patient to call and obtain from their insurance company. IF YOU ARE EXPERIENCING FLU LIKE SYMPTOMS PRIOR TO PROCEDURE PLEASE CALL OFFICE SO WE CAN SCHEDULE YOU FOR COVID TESTING. THANK YOU. The following attachments cannot be sent through Care Everywhere.EGD (Upper Endoscopy): Pre-op (Irish)documented in this encounter [facility] 08-28-2024 History of Present illness Narrative Nurse Note: Review of Systems Constitutional: Negative. HENT: Negative. Respiratory: Negative. Cardiovascular: Negative. Gastrointestinal: Negative. Endocrine: Negative. Genitourinary: Negative. Musculoskeletal: Negative. Skin: Negative. Allergic/Immunologic: Negative. Neurological: Negative. Hematological: Negative. Psychiatric/Behavioral: Negative. Nursing Assessment: Patient presents here today for follow up on lab results and left hand pain. Physical Exam Chief Complaint: Chief Complaint Patient presents with Follow-up Lab results and left hand pain. History of Present Illness: Austen Morrison is a 38 y.o. male who presents to the office today for a yearly physical. He has a past medical history of chronic gout currently on allopurinol daily, GERD currently taking omeprazole 20 mg daily, fatty liver, obstructive sleep apnea on CPAP. States he has been feeling generally well and he has no new questions or concerns today. States he does chronic left wrist pain which has not improved over the last year. Previous x-rays were negative for fracture dislocation. Does recall falling of the wrist which has been the pain started. He did have labs which are not available for my review at this time. Diet: States he has been trying to improve his diet. He has lost about 4 lb in the last year. Exercise: He has been very active with his kids, work, house remodeling Review of Systems Constitutional: No fever, no chills, no night sweats Skin: No new rashes. No changing moles or skin lesions HENT: No ear pain, no sore throat, no sinus pain Eyes: No blurred vision, no double vision, no eye discharge, no redness Cardiovascular: No chest pain, no palpitations, no syncope Respiratory: No cough, no shortness of breath, no wheezing Gastrointestinal: No heartburn, no vomiting, no diarrhea, no constipation Genitourinary: No dysuria, no urgency, no frequency Musculoskeletal: No myalgias, no joint pain Neurological: No dizziness, no focal weakness, no headaches Psychiatric: No depressive symptoms, no anxiety, no insomnia Lymph/Heme: No easy bruising/bleeding. No lymph node swelling Endocrine: No polydipsia, no polyuria, no hot flashes Nurse Note: Review of Systems Constitutional: Negative. HENT: Negative. Respiratory: Negative. Cardiovascular: Negative. Gastrointestinal: Negative. Endocrine: Negative. Genitourinary: Negative. Musculoskeletal: Negative. Skin: Negative. Allergic/Immunologic: Negative. Neurological: Negative. Hematological: Negative. Psychiatric/Behavioral: Negative. Nursing Assessment: Patient presents here today for follow up on lab results and left hand pain. Active Problem List Hehas Gout; body mass index of 40.0-49.9; Fatty liver; GERD (gastroesophageal reflux disease); LYNDA (obstructive sleep apnea); and Prediabetes on their problem list. Past Surgical History His has a past surgical history that includes appendectomy and tonsillectomy. Current Medications Current Outpatient Medications Medication Sig Dispense Refill Allopurinol 100 MG tablet Take 1 tablet by mouth daily. 30 tablet 11 GINKGO BILOBA EXTRACT PO Take by mouth. MILK THISTLE PO Take by mouth. Misc Natural Products (turmeric) capsule Take by mouth daily. Multiple Vitamin (Multi-Vitamin) tablet Take 1 tablet by mouth daily. omeprazole [address] capsule Take 1 capsule by mouth daily. TART SONI PO Take by mouth. Meloxicam 7.5 MG tablet Take 1 tablet by mouth daily. 30 tablet 2 No current facility-administered medications for this visit. Allergies He is allergic to *seasonal, cat dander, raspberry, sertraline, and sulfa antibiotics. Family History family history includes Cancer- Other in his maternal grandfather; Colorectal Cancer in his paternal grandfather and paternal uncle; Diabetes in his father and paternal grandfather; Heart Disease - Other in his paternal grandfather. Social History reports that he has quit smoking. His smoking use included cigarettes. He has never used smokeless tobacco. He reports that he does not currently use alcohol. He reports that he does not currently use drugs. Immunizations There is no immunization history on file for this patient. Physical Exam Blood pressure 135/79, pulse 59, temperature 96.7 F (35.9 C), temperature source Temporal, resp. rate 16, height 1.803 m (5' 11), weight 131.8 kg (290 lb 9.6 oz), SpO2 97%., Body mass index is 40.53 kg/m . Constitutional: He is well-developed, well-nourished, and in no distress. He is obese. Head: Normocephalic and atraumatic. Ears: Normal TM bilaterally, normal external ear and ear canal bilaterally. Nose: No nasal congestion. No maxillary sinus tenderness, no frontal sinus tenderness. Mouth/Throat: Moist mucous membranes. No pharyngeal erythema, no exudate, no post-nasal drip. Eyes: Normal conjunctivae, normal extraocular motions, reactive pupils, no discharge. Neck: Normal range of motion. Neck supple. No JVD present. No carotid bruits. No thyromegaly. No cervical LAD. Cardiovascular: Normal rate, regular rhythm, normal heart sounds, no gallop. No murmur heard. Pulmonary/Chest: Effort normal, breath sounds normal. No wheezes. Abdominal: Soft. Normal bowel sounds. No tenderness. Musculoskeletal: Exam of the left wrist reveals no tenderness to palpation. He has good range of with end range pain with the ulnar deviation. No rash, swelling noted. No joint deformity of hands, neck, or knees noted. Good ROM of all visible joints during exam. Gait & balance normal on observation within exam room. Genitourinary: No suprapubic pain, no CVA tenderness Neurological: Alert. Grossly normal strength, normal speech. Skin: Skin is warm and dry. No rash noted. Psychiatric: Mood, affect and judgment normal. Ordered thought content. Results for orders placed or performed in visit on 08/14/23 URIC ACID Result Value Ref Range URIC ACID 7.1 3.5 - 8.5 MG/DL VITAMIN D (25-HYDROXY,TOTAL) Result Value Ref Range VITAMIN D 25 HYDROXY 61.0 NG/ML COMPREHENSIVE METABOLIC PANEL Result Value Ref Range Glucose 103 (H) 70 - 100 MG/DL BUN 14 7 - 20 MG/DL CREATININE SERUM 0.98 0.70 - 1.20 MG/DL SODIUM 141 137 - 145 MMOL/L Potassium 4.8 3.5 - 5.1 MMOL/L CHLORIDE 108 (H) 98 - 107 MMOL/L CALCIUM 9.1 8.4 - 10.2 MG/DL PROTEIN, TOTAL 7.2 6.3 - 8.2 GM/DL Albumin 4.5 3.5 - 5.0 G/dl BILIRUBIN, TOTAL 1.4 (H) 0.2 - 1.3 MG/DL AST 51 17 - 59 IU/L ALKALINE PHOSPHATASE 41 38 - 126 IU/L CARBON DIOXIDE (CO2) 29 22 - 30 MMOL/L A/G Ratio 1.7 RATIO ALT 81 (H) <50 IU/L ESTIMATED GFR, NON AMER 92 ml/min/1.73sq.m ESTIMATED GFR, 111 ml/min/1.73sq.m GFR COMMENT Average GFR for 30-39 years old = 107. HEMOGLOBIN A1C Result Value Ref Range HEMOGLOBIN A1C 5.7 0 - 6 % Estimated Average Glucose 117 mg/dL CBC, EDIF, PLATELET Result Value Ref Range WBC (WHITE BLOOD COUNT) 7.9 3.6 - 11.0 10*3/uL RBC 5.38 4.0 - 6.1 10*6/uL HEMOGLOBIN (HGB) 15.7 14.0 - 18.0 G/DL HEMATOCRIT (HCT) 46.6 42.0 - 52.0 % MEAN CELL VOLUME 86.6 80.0 - 100.0 FL Mean Cell HGB 29.1 26.0 - 35.0 PG MEAN CELL HGB CONCENTRATION 33.6 27.0 - 37.0 G/DL RBC DISTRIBUTION 13.6 11.5 - 14.5 % PLATELET COUNT 241 130 - 400 10*3/uL MEAN PLATELET VOLUME 8.2 7.4 - 11.0 FL DIFFERENTIAL TYPE AUTO DIFF % NEUTROPHILS 56.2 37.0 - 75.0 % LYMPHOCYTE 33.8 20.0 - 55.0 % MONOCYTE % 6.6 0.0 - 10.0 % EOSINOPHIL % 2.9 0.0 - 11.0 % BASOPHIL % 0.5 0.0 - 2.0 % Absolute Neutrophil Count 4.4 1.4 - 6.5 10*3/uL LYMPHOCYTES, ABSOLUTE 2.7 1.2 - 3.4 10*3/uL MONOCYTES, ABSOLUTE 0.5 0.0 - 0.7 10*3/uL ABSOLUTE EOSINOPHIL COUNT 0.2 0.0 - 0.7 10*3/uL ABSOLUTE BASOPHIL COUNT 0.0 0.0 - 0.2 10*3/uL LIPID PANEL W CALCULATED LDL Result Value Ref Range CHOLESTEROL 158 120 - 200 MG/DL TRIGLYCERIDE 63 0 - 150 MG/DL HDL CHOLESTEROL 44 26 - 63 MG/DL LDL CHOLESTEROL, CALCULATED 101 (H) <100 MG/DL VLDL Cholesterol, Calculated 13 5 - 25 MG/DL TCHOL/HDL RATIO, MANUAL ENTER 3.59 RATIO HEPATITIS A, B, C Result Value Ref Range Hep A AB (IGG + IGM) NEGATIVE NEGATIVE Hep B Surf AG NEGATIVE NEGATIVE HEP B CORE AB,TOTAL(IGG+IGM) NEGATIVE NEGATIVE Hep B Surf AB NEGATIVE (A) POSITIVE HEP C AB, Donor NEGATIVE NEGATIVE Assessment/Plan Problem List Items Addressed This Visit Digestive Fatty liver; dietary and lifestyle changes recommended. Continue weight loss. Relevant Orders COMPREHENSIVE METABOLIC PANEL GERD (gastroesophageal reflux disease); continue omeprazole 20 mg daily. Previous referral sent to General surgery for EGD, but patient was not able to make the appointment. New referral placed today. Relevant Orders AMB REFERRAL TO GENERAL SURGERY Endocrine Gout; continue allopurinol 100 mg daily. We will consider increasing allopurinol based on uric acid level. Relevant Orders URIC ACID Prediabetes; dietary lifestyle changes. He does have labs pending recommendations will pending Relevant Orders CBC, EDIF, PLATELET COMPREHENSIVE METABOLIC PANEL HEMOGLOBIN A1C Other Visit Diagnoses Well adult exam - Primary; patient is a 38-year-old man who presents the office for annual exam. He has been doing well. He has been steadily losing some weight. He continues with the same. He did labs this morning recommendations will pending results. Dietary lifestyle changes recommended. All questions answered. He is agreeable with the plan. Relevant Orders CBC, EDIF, PLATELET COMPREHENSIVE METABOLIC PANEL LIPID PANEL W CALCULATED LDL HEMOGLOBIN A1C Mixed hyperlipidemia dietary lifestyle changes recommend. Further recommendations will be pending lab results. Relevant Orders CBC, EDIF, PLATELET COMPREHENSIVE METABOLIC PANEL LIPID PANEL W CALCULATED LDL LYNDA on CPAP continue CPAP. Chronic pain of left wrist patient does chronic left wrist pain. May be due to underlying gout, but it was recalled pain started with an injury about a year ago. X-rays were negative at that time. We will place him on meloxicam 7.5 mg daily for pain. We will also get MRI of the left wrist for further evaluation. Referral also placed to orthopedics for further evaluation. Continue bracing at home. Continue exercise in the home. Relevant Medications Meloxicam 7.5 MG tablet Other Relevant Orders MRI WRIST LEFT WITHOUT CONTRAST AMB REFERRAL TO ORTHOPAEDICS The documentation within this encounter was likely aided with MOBITRAC, an electronic screw machine repairer device. Please excuse any errors or omissions that may not have been recognized at the time of this encounter. I spent greater than 30 minutes in total reviewing the patient's chart, interviewing the patient, and documenting today's visit. Discontinued Medications: There are no discontinued medications. Medications Refilled: Requested Prescriptions Signed Prescriptions Disp Refills Meloxicam 7.5 MG tablet 30 tablet 2 Sig: Take 1 tablet by mouth daily. Ignacio Umanzor PA-C 08/28/24 8:53 AM documented in this encounter [facility] 08-28-2024 Instructions MORRIS Vanegas - 08/28/2024 8:20 AM EST Fasting labs in February 2025 Patient to schedule MRI and with ortho Schedule with general surgery Follow up with Ignacio Umanzor in 6 months for evaluation of labs documented in this encounter [facility] 08-28-2024 Miscellaneous Notes Addended by: IGNACIO UMANZOR on: 08/28/2024 10:53 AM Modules accepted: Orders documented in this encounter [facility] 08-28-2024 Note Addended by: IGNACIO UMANZOR on: 08/28/2024 10:53 AM Modules accepted: Orders [address]22-2023 History of Present illness Narrative Nurse Note: Review of Systems Constitutional: Negative. HENT: Negative. Eyes: Negative. Respiratory: Negative. Cardiovascular: Negative. Gastrointestinal: Negative. Endocrine: Negative. Genitourinary: Negative. Musculoskeletal: Negative. Skin: Negative. Allergic/Immunologic: Negative. Neurological: Negative. Hematological: Negative. Psychiatric/Behavioral: Negative. Nursing Assessment: Patient presents here today to establish with new provider. Patient has complaints of left wrist pain. Physical Exam Images from the original note were not included. Chief Complaint: Chief Complaint Patient presents with New Patient Establish with new provider History of Present Illness Austen Morrison is a 37 y.o. male who presents to the office today as a new patient. Patient has a past medical history of gout, gastric reflux, obstructive sleep apnea. Patient was recently seen in the urgent care for left wrist pain on 07/20/2023.. He had x-rays in the urgent care revealing ulnar variance of the left wrist without acute osseous abnormality. He was subsequently diagnosed with ulnar abutment syndrome for which he was placed in a left wrist brace. Patient states he fell early June and was having improvement in his pain, but his pain did increase which is why he went to the urgent care in July. States his pain has persisted since his urgent care visit, but has improved. He continues to wear the brace more often than not and has been taking ibuprofen 400 mg once daily. States tetanus within the last 3 years. Declines flu. Diet: States this is not watch his diet very closely. He does drink some water. Exercise: States he stays very active at work, but does not stick to a regular exercise regime. Sleep: He does have a history of obstructive sleep apnea for which he is on a CPAP machine. He does sleep much better while on the CPAP and he does use it daily. Review of Systems Constitutional: No fever, no chills, no night sweats Skin: No new rashes. No changing moles or skin lesions HENT: No ear pain, no sore throat, no sinus pain Eyes: No blurred vision, no double vision, no eye discharge, no redness Cardiovascular: No chest pain, no palpitations, no syncope Respiratory: No cough, no shortness of breath, no wheezing Gastrointestinal: No heartburn, no vomiting, no diarrhea, no constipation Genitourinary: No dysuria, no urgency, no frequency Musculoskeletal: Admits to left wrist pain. Neurological: No dizziness, no focal weakness, no headaches Psychiatric: No depressive symptoms, no anxiety, no insomnia Lymph/Heme: No easy bruising/bleeding. No lymph node swelling Endocrine: No polydipsia, no polyuria, no hot flashes Nurse Note: Review of Systems Constitutional: Negative. HENT: Negative. Eyes: Negative. Respiratory: Negative. Cardiovascular: Negative. Gastrointestinal: Negative. Endocrine: Negative. Genitourinary: Negative. Musculoskeletal: Negative. Skin: Negative. Allergic/Immunologic: Negative. Neurological: Negative. Hematological: Negative. Psychiatric/Behavioral: Negative. Nursing Assessment: Patient presents here today to establish with new provider. Patient has complaints of left wrist pain. Active Problem List Hehas Gout and body mass index of 40.0-49.9 on their problem list. Reviewed Today. Past Surgical History His has a past surgical history that includes appendectomy and tonsillectomy. Reviewed Today. Current Medications Current Outpatient Medications Medication Sig Dispense Refill Allopurinol 100 MG tablet Take 1 tablet by mouth daily. GINKGO BILOBA EXTRACT PO Take by mouth. MILK THISTLE PO Take by mouth. Multiple Vitamin (Multi-Vitamin) tablet Take 1 tablet by mouth daily. omeprazole [address] capsule Take 1 capsule by mouth daily. No current facility-administered medications for this visit. Reviewed Today. Allergies He is allergic to *seasonal, cat dander, raspberry, sertraline, and sulfa antibiotics. Reviewed Today. Family History family history includes Cancer- Other in his maternal grandfather; Colorectal Cancer in his paternal grandfather and paternal uncle; Diabetes in his father and paternal grandfather; Heart Disease - Other in his paternal grandfather. Reviewed Today. Social History reports that he has quit smoking. His smoking use included cigarettes. He has never used smokeless tobacco. He reports that he does not currently use alcohol. He reports that he does not currently use drugs. Reviewed Today. Immunizations There is no immunization history on file for this patient. Reviewed Today. Physical Exam Blood pressure 135/78, pulse 64, temperature 97.6 F (36.4 C), temperature source Temporal, resp. rate 16, height 1.803 m (5' 11), weight 134 kg (295 lb 6.4 oz), SpO2 98 %., Body mass index is 41.2 kg/m . Constitutional: He is well-developed, well-nourished, and in no distress. Head: Normocephalic and atraumatic. Ears: Normal TM bilaterally, normal external ear and ear canal bilaterally. Nose: No nasal congestion. No maxillary sinus tenderness, no frontal sinus tenderness. Mouth/Throat: Moist mucous membranes. No pharyngeal erythema, no exudate, no post-nasal drip. Eyes: Normal conjunctivae, normal extraocular motions, reactive pupils, no discharge. Neck: Normal range of motion. Neck supple. No JVD present. No carotid bruits. No thyromegaly. No cervical LAD. Cardiovascular: Normal rate, regular rhythm, normal heart sounds, no gallop. No murmur heard. Pulmonary/Chest: Effort normal, breath sounds normal. No wheezes. Abdominal: Soft. Normal bowel sounds. No tenderness. Musculoskeletal: Mild tenderness noted in the left distal ulnar head. No erythema, warmth. No swelling noted. He does have adequate range of motion in all planes. No joint deformity of hands, neck, or knees noted. Good ROM of all visible joints during exam. Gait & balance normal on observation within exam room. Genitourinary: No suprapubic pain, no CVA tenderness Neurological: Alert. Grossly normal strength, normal speech. Skin: Skin is warm and dry. No rash noted. Psychiatric: Mood, affect and judgment normal. Ordered thought content. [facility] Outside Information Results XR WRIST LEFT 3 VIEWS (Order [id number]) XR WRIST LEFT 3 VIEWS Order: [id number] Impression FINDINGS/ 1. No evidence of acute osseous abnormality of the left wrist. 2. Positive ulnar variance again seen. Workstation ID: [id number] Narrative EXAMINATION: XR WRIST LEFT 3+ VIEWS (STANDARD) HISTORY: ORDERING SYSTEM PROVIDED HISTORY: pain, TECHNOLOGIST PROVIDED HISTORY: Illness/Other Reason for exam: L wrist pain x 1 month Cancer History: u Surgery, RadiationHistory: u Encounter Type: Initial Additional signs and symptoms: n ORDERING SYSTEM PROVIDED DIAGNOSIS CODES: COMPARISON: 03/29/2021 Images on Order [id number] Scan on 07/20/2023: XR Wrist Left 3+ Views (Standard) Exam End: 07/20/23 18:52 Specimen Collected: 07/20/23 19:09 Last Resulted: 07/20/23 19:10 Received From: [facility] Result Received: 07/31/23 08:20 Assessment/Plan Problem List Items Addressed This Visit Endocrine Gout; patient does have known gout for which he is currently taking allopurinol 100 mg daily. He is also been taking vitamins and supplements which have him helped prevent recent acute attacks. He states he is not had any gout eruptions in years. States the primary location of his gouty arthropathy is in his left 1st MTP joint. We will obtain updated uric acid level further recommendations will be pending results. Relevant Orders URIC ACID Other Visit Diagnoses Well adult exam - Primary; patient is a 37-year-old male presents the office today to establish care. He is due for lab evaluation which have been ordered and further recommendations will be pending results. He does have history of gouty arthropathy and gastric reflux which have been stable, but do require further workup for further recommendations. He does have a more recent history of ulnar abutment syndrome for which she has been compliant on his wrist brace and ibuprofen therapy. I would recommend he continue conservative therapy for the next 4-6 weeks and we will re-evaluate the need for further imaging or management options at that time. Patient states he is up-to-date on tetanus vaccination and he wishes to hold off on any further vaccinations at this time. All questions answered. Patient agreeable to the plan. Relevant Orders LIPID PANEL W CALCULATED LDL CBC, EDIF, PLATELET HEMOGLOBIN A1C COMPREHENSIVE METABOLIC PANEL VITAMIN D (25-HYDROXY,TOTAL) Need for lipid screening specific screening due at this time. Labs been ordered further recommendations will be pending results. Relevant Orders LIPID PANEL W CALCULATED LDL Diabetes mellitus screening diabetes screening due at this time. Labs been ordered and further recommendations will be pending results. Relevant Orders HEMOGLOBIN A1C COMPREHENSIVE METABOLIC PANEL Vitamin D deficiency vitamin-D screening due at this time. Labs been ordered and further recommendations will be pending results. Relevant Orders VITAMIN D (25-HYDROXY,TOTAL) Ulnar abutment syndrome of left wrist patient does have a recent diagnosis of ulnar abutment syndrome of the left wrist. He has been wearing his left wrist brace with some improvement from his symptoms. He is also been taking ibuprofen 400 mg once daily. I have recommended patient continue wearing his brace and increase his daily ibuprofen usage to 400 mg 3 times per day to improve overall pain relief and anti-inflammatory effects. Have recommended he perform at home exercises which we have provided in the office. I will be seeing the patient in 4-6 weeks for re-evaluation. We may consider MRI of the wrist or formal physical therapy, although he is somewhat resistant to this idea. LYNDA on CPAP patient does have a history of obstructive sleep apnea for which he is on a CPAP machine daily. States his daily fatigue and headaches are significantly improved ever since starting on the CPAP machine. Gastric reflux patient does have a history of gastric reflux for which he has been on omeprazole daily for years. States he did have an endoscopy performed years ago, but can not remember the results. States he would like to discontinue his omeprazole as he has recently read there are significant side effects from the medication. He would like to be evaluated with an repeat upper endoscopy for further recommendations. Referral has been placed to General surgery today. Relevant Orders AMB REFERRAL TO GENERAL SURGERY The documentation within this encounter was likely aided with MOBITRAC, an electronic screw machine repairer device. Please excuse any errors or omissions that may not have been recognized at the time of this encounter. Discontinued Medications: There are no discontinued medications. Medications Refilled: Requested Prescriptions No prescriptions requested or ordered in this encounter Ignacio Umanzor PA-C 07/31/23 3:04 PM documented in this encounter [facility] 12-20-2022 History of Present illness Narrative Austen Morrison 37 y.o. 1985 male Reason for Consult: #1 GERD #2 family history of colon cancer HPI: 37-year-old male with history of morbid obesity fatty liver and GERD obstructive sleep apnea on CPAP was referred to me for evaluation of GERD and family history of colon cancer. Patient says she has heartburn off and on for long time not relieved with medication. Denies any difficulty in swallowing or recent weight loss. His paternal uncle had colon cancer in late 40s and paternal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 No Advanced Directives Records FoundDocuments on File Type Date 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 Advance Directives and Living Will Reason for Referral Specialty Diagnoses / Procedures Referred By Contwendi t Referred To Contact Gastroenterology Diagnoses Colon cancer screening Marcela Suárez MD [address] [address] Huey Alarcon MD [facility] [place] [address] Referral ID Status Reason Start Date Expiration Date V isits Requested Visits Authorized [id number] Authorized 10/04/2022 10/04/2023 1 1 Specialty Diagnoses / Procedures Referred By Contac t Referred To Contact Gastroenterology Diagnoses Gastroesophageal reflux disease, unspecified whether esophagitis present Marcela Suárez MD [address] [place] [phone] Referral ID Status Reason Start Date Expiration Date V isits Requested Visits Authorized [id number] Pending Review 10/09/2022 10/09/2023 1 1 Specialty Diagnoses / Procedures Referred By Contac t Referred To Contact Diagnoses Abdominal pain, generalized Gastroesophageal reflux disease, unspecified whether esophagitis present Procedures DIAGNOSTIC UPPER ENDOSCOPY AK ESOPHAGOGASTRODUODENOSCOPY TRANSORAL DIAGNOSTIC Chandana Alcala MD [address] [phone] Referral ID Status Reason Start Date Expiration Date V isits Requested Visits Authorized [id number] New Request 09/21/2024 10/16/2025 1 1 Specialty Diagnoses / Procedures Referred By Contac t Referred To Contact Diagnoses Abdominal pain, generalized Procedures US ABDOMEN RUQ/LIVER/GB Chandana Alcala MD [address] [facility] [place] [phone] Referral ID Status Reason Start Date Expiration Date V isits Requested Visits Authorized [id number] New Request 09/21/2024 10/16/2025 1 1 Specialty Diagnoses / Procedures Referred By Contac t Referred To Contact Magnetic Resonance Imaging Diagnoses Ulnar abutment syndrome of left wrist Procedures MRI WRIST LEFT WITHOUT CONTRAST CHG MRI ANY JT UPPER EXTREMITY W/O CONTRAST Ignacio Lamar PA [address] [facility] [address] [place] [address] [facility] [address] [place] [address] Referral ID Status Reason Start Date Expiration Date Visits Re quested Visits Authorized [id number] Closed 08/28/2024 09/22/2025 1 1 Additional Source Comments (unrecognized sect ion and content) No Status Records FoundNo Status Records FoundNo Status Records FoundNo Status Records FoundNo Status Records FoundNo Status Records FoundNo Status Records FoundNo Status Records FoundNo Status Records FoundNo Status Records FoundNo Status Records FoundNo Status Records FoundNo Status Records Found INFORMATION SOURCE (unrecogn ized section and content) DATE CREATED AUTHOR 12/18/2018 [facility] DATE CREATED AUTHOR AUTHOR'S ORGANIZ ATION 04/15/2019 [facility] DATE CREATED AUTHOR AUTHOR'S ORGANIZ ATION 04/16/2019 [facility] DATE CREATED AUTHOR AUTHOR'S ORGANIZ ATION 06/11/2019 [facility] DATE CREATED AUTHOR AUTHOR'S ORGANIZ ATION 06/04/2020 [facility] DATE CREATED AUTHOR AUTHOR'S ORGANIZ ATION 05/22/2021 [facility] DATE CREATED AUTHOR AUTHOR'S ORGANIZ ATION 12/22/2022 [facility] DATE CREATED AUTHOR AUTHOR'S ORGANIZ ATION 12/30/2024 [facility] DATE CREATED AUTHOR AUTHOR'S ORGANIZ ATION 02/08/2025 [facility] DATE CREATED AUTHOR AUTHOR'S ORGANIZ ATION 06/12/2025 [facility] DATE CREATED AUTHOR AUTHOR'S ORGANIZ ATION 07/19/2025 [facility] DATE CREATED AUTHOR AUTHOR'S ORGANIZ ATION 07/21/2025 [facility] DATE CREATED AUTHOR AUTHOR'S ORGANIZ ATION 07/22/2025 [facility] Reason for Visit (unrecogniz ed section and content) Reason Comments Establish Care Reason Onset Date Comments Medication Refill 01/16/2021 Reason Onset Date Comments Medication Refill 03/01/2022 Reason Comments Annual Exam Specialty Diagnoses / Procedures Referred By Oscar blank Referred To Contact Gastroenterology Diagnoses Colon cancer screening Marcela Suárez MD [address] [address] Huey Alarcon MD [address] [place] [address] Referral ID Status Reason Start Date Expiration Date Visits Re quested Visits Authorized [id number] Closed 10/04/2022 10/04/2023 1 1 Reason Comments New Patient Establish with new p rovider Specialty Diagnoses / Procedures Referred By Contac t Referred To Contact Diagnoses Encounter to establish care System, Provider Not In Ignacio Umanzor PA [address] [address] Referral ID Status Reason Start Date Expiration Date V isits Requested Visits Authorized [id number] Pending Review 07/26/2023 08/19/2024 1 1 Reason Comments Follow-up Lab results and left hand pain. Reason Comments New Patient Specialty Diagnoses / Procedures Referred By Contac t Referred To Contact General Surgery Diagnoses Gastroesophageal reflux disease, unspecified whether esophagitis present Ignacio Umanzor PA [address] [address] Chandana Alcala MD [address] [place] [address] Referral ID Status Reason Start Date Expiration Date Visits Re quested Visits Authorized [id number] Open 08/28/2024 09/22/2025 1 1 Specialty Diagnoses / Procedures Referred By Contac t Referred To Contact Magnetic Resonance Imaging Diagnoses Ulnar abutment syndrome of left wrist Procedures MRI WRIST LEFT WITHOUT CONTRAST CHG MRI ANY JT UPPER EXTREMITY W/O CONTRAST MATRL Ignacio Umanzor PA [address] [address] [facility] [address] [place] [address] Referral ID Status Reason Start Date Expiration Date Visits Re quested Visits Authorized [id number] Closed 08/28/2024 09/22/2025 1 1 Reason Comments Pain New Patient Specialty Diagnoses / Procedures Referred By Oscar t Referred To Contact Orthopaedics Diagnoses Ulnar abutment syndrome of left wrist Ignacio Umanzor PA [address] [facility] [address] [place] [address] Phone: tel: fax: Marcello Quiles MD [address] [place] [address] Phone: tel: Referral ID Status Reason Start Date Expiration Date V isits Requested Visits Authorized [id number] New Request 08/28/2024 09/22/2025 1 1 Reason Comments Chest Pain Hypertension Reason Comments Chest Pain Hypertension Pt reports his wive is and has been having to check her BP so he checked his and it was 160's over 120's. He also reports some chest tightness on his left side since last night and pressure in his head behind his eyes. Also a headache. Reason Comments Establish Care Wrist Pain Ulnar abutment syndr ome Reason Comments Follow-up Pain in legs and low er back. <item> Privacy Markings (unrecogniz ed section and content) Section Author: Radha Reynolds PROHIBITION ON REDISCLOSURE OF CONFIDENTIAL INFORMATION This notice accompanies a disclosure of information concerning a client made to you with the consent of such client. Care Teams (unrecognized sec tion and content) High Worker Relationship Specialty Start Date End Date Marcela Suárez MD [address] [address] PCP - General Family Medicine 01/16/21 Marcela Suárez MD [address] [address] PCP - IDANIA Attributed Provider - [employer] 04/09/19 09/08/50 High Worker Relationship Specialty Start Date End Date Marcela Suárez MD [facility]0 [place] [phone] PCP - General Family Medicine 01/16/21 Marcela Suárez MD [facility] [place] [phone] PCP - IDANIA Attributed Provider - [employer] 04/09/19 09/08/50 High Worker Relationship Specialty Start Date End Date Marcela Suárez MD [address] [place], [place] [phone] PCP - General Family Medicine 01/16/21 Marcela Suárez MD [address] [address] [place], [place] [id number] PCP - IDANIA Attributed Provider - MMO Commercial 04/09/19 09/08/50 High Worker Relationship Specialty Start Date End Date Marcela Suárez MD [address] [place] [id number] PCP - General Family Medicine 01/16/21 Marcela Suárez MD [address] [place] [id number] PCP - IDANIA Attributed Provider - MMO Commercial 04/09/19 09/08/50 High Worker Relationship Specialty Start Date End Date Marcela Suárez MD [address] [place] [id number] PCP - General Family Medicine 01/16/21 Marcela Suárez MD [address] [id number] PCP - IDANIA Attributed Provider - MMO Commercial 04/09/19 09/08/50 High Worker Relationship Specialty Start Date End Date Marcela Suárez MD [address] [place] [id number] PCP - General Family Medicine 01/16/21 Marcela Suárez MD [address] [place] [phone] PCP - IDANIA Attributed Provider - MMO Commercial 04/09/19 09/08/50 High Worker Relationship Specialty Start Date End Date Marcela Suárez MD [address] [phone] PCP - General Family Medicine 01/16/21 Marcela Suárez MD [facility] [address] [address] PCP - IDANIA Attributed Provider - MMO Commercial 04/09/19 09/08/50 High Worker Relationship Specialty Start Date End Date Ignacio Umanzor PA [address] [facility] [address] [place] [address] PCP - General Physician Fuel Technician 07/31/23 High Worker Relationship Specialty Start Date End Date Ignacio Umanzor PA [address] [facility] [address] [place] [address] PCP - General Physician Fuel Technician 07/31/23 High Worker Relationship Specialty Start Date End Date Ignacio Umanzor PA [address] [facility] [address] [place] [address] PCP - General Physician Fuel Technician 07/31/23 High Worker Relationship Specialty Start Date End Date Ignacio Umanzor PA [address] [place] [phone] PCP - General Physician Fuel Technician 07/31/23 High Worker Relationship Specialty Start Date End Date Ignacio Umanzor PA [address] [facility] 203 [place] [address] PCP - General Physician Fuel Technician 07/31/23 High Worker Relationship Specialty Start Date End Date Ignacio Umanzor PA [address] [place] [address], [place] [phone] PCP - General Physician Fuel Technician 07/31/23 High Worker Relationship Specialty Start Date End Date Ignacio Umanzor PA [address] [place] [address], [place] [phone] PCP - General Physician Fuel Technician 07/31/23 High Worker Relationship Specialty Start Date End Date Justo [place] DO [facility] [address] [address] PCP - General Family Medicine 05/19/25 High Worker Relationship Specialty Start Date End Date Justo [place] DO [facility] [address] [id number] PCP - General Family Medicine 05/19/25 FOR RECORDS PERTAINING TO PATIENTS WHO ARE OR HAVE BEEN ENROLLED IN A CHEMICAL DEPENDENCY/SUBSTANCEABUSE PROGRAM, SOME INFORMATION MAY BE OMITTED. This clinical summary was aggregated from multiple sources. Caution should be exercised in using it in the provision of clinical care. This summary normalizes information from multiple sources, and as a consequence, information in this document may materially change the coding, format and clinical context of patient data. In addition, data may be omitted in some cases. CLINICAL DECISIONS SHOULD BE BASED ON THE PRIMARY CLINICAL RECORDS. [facility] provides no warranty or guarantee of the accuracy or completeness of information in this document.
[2025-08-02 21:29] LABS: Color, Urine Straw (Yellow); Glucose, Dipstick Normal (Normal); Ketone-Dipstick Negative (Negative); Leukocyte Esterase-Dipstick Negative /ul (Negative); Nitrite-Dipstick Negative (Negative); Occult Blood-Urine Negative /ul (Negative); Protein-Dipstick Negative (Negative); Specific Gravity, Urine 1.010 (1.002-1.030); Urine Bilirubin Dipstick Negative (Negative)
[2025-08-02 22:01] LABS: Red Blood Cells-Urine 0-5 SEEN /hpf (0-5); Squamous Epithelial Cells - UA 0-5 SEEN /hpf (0-5)
[2025-08-02 23:12] VITALS: BP 160/70; PULSE 76; RESP 18; TEMP 36.6; O2SAT 98
--- NOTE | 2025-08-02 23:43 | EDS_ITS ---
HPI History of Present Illness Chief Complaint: Complaint Informant: patient Narrative Narrative: 39-year-old male presenting to the emergency room with the chief complaint of penile pain. Patient states that today he noted some discomfort at the beginning of urination. He states that he feels like his penile shaft is turtling. He denies any testicular pain. He states that he had a back injury and has been doing physical therapy. He states he recalls that everybody has been asking him if he is urinating normally and wonders if this problem has to do with his back injury. No fevers recent illnesses no known trauma to the genitalia. States he is not a diabetic. He is denying any saddle anesthesia or leg weakness. He does have pain in his legs which she states is from physical therapy as well as pain in the back which is unchanged. [facility] Medical History Sleep apnea GERD (gastroesophageal reflux disease) Gout Home Medications ?Medication ?Instructions ?Recorded ?Last Taken ?Type allopurinol 100 mg tablet 100 mg PO BID 07/15/25 Unkno wn History naproxen 500 mg tablet,delayed 500 mg PO BID 07/15/25 Unknown History release methocarbamol 500 mg tablet 1,000 mg (2 x 500 mg) PO 4 X/DAY 07/17/25 Unknown Rx PRN Muscle pain/spasm #56 tabs amoxicillin 875 mg-potassium 1 tab PO BID 08/02/25 Unk nown History clavulanate 125 mg tablet Allergy/AdvReac Type Severity Reaction Status Date / Time Sulfa (Sulfonamide Allergy Severe hives Verified 08/02/25 20:38 Antibiotics) Surgical History Hx of tonsillectomy Hx of appendectomy Social History Smoking Status: Former smoker ROS ROS ED Constitutional Constitutional ED: Denies chills or weight loss Eyes Eyes: Denies change in vision or diplopia ENT ENT ED: Denies ear pain, rhinorrhea or sore throat Cardiovascular Cardiovascular: Denies chest pain, orthopnea, palpitations or racing heartbeat Respiratory/Chest Respiratory/Chest: Denies cough, dyspnea or orthopnea Gastrointestinal Gastrointestinal: Denies abdominal pain, diarrhea, nausea or vomiting Genitourinary Genitourinary ED: Reports dysuria; Denies hematuria or urinary frequency Musculoskeletal Musculoskeletal: Reports back pain; Denies arthralgias or myalgias Integumentary Denies abscess or rash Neurologic Neurologic: Denies headache(s) or weakness Psychiatric Psychiatric: Denies anxiety, depression, suicidal ideation or suicidal thoughts Endocrine Endocrinology: Denies polydipsia, polyphagia or polyuria Allergic/Immunologic Allergic/Immunologic ED: Denies mouth swelling, tongue swelling or urticaria EXAM Physical Exam Const Vital Signs: 08/02/25 20:37 08/02/25 23:12 Temperature 98.2 F 97.9 F Temperature Source Oral Pulse Rate 90 76 Respiratory Rate 14 18 Blood Pressure 178/119 H 160/70 H Blood Pressure Mean 138 100 Pulse Ox 97 98 Oxygen Delivery Method Room Air Positive well nourished and well developed General Appearance ED: well developed HEENT Reports normocephalic, head/scalp atraumatic and moist mucous membranes Eyes PERRL and EOMs intact bilaterally Neck no lymphadenopathy, supple and no JVD Resp normal respiratory effort and clear to auscultation bilaterally Cardio regular rate, regular rhythm and no murmurs GI normal to inspection, nondistended, normoactive bowel sounds and non-tender Palpation: soft Narrative: exam reveals equal testes bilaterally nontender no epididymal tenderness. I do not appreciate any masses of the testes or along the spermatic cord. Did not see any discharge lesions or injuries to the penile shaft/glans. No significant lymphadenopathy. Back/Spine no CVA tenderness and normal ROM Extremity normal to inspection General Extremety ED: Negative for edema General Extremity: Negative for edema Neuro oriented x3, CN's II-XII intact bilaterally, no focal motor deficits and no sensory deficits noted Sensorium / Orientation: alert Motor Exam: strength 5/5 throughout Psych mental status grossly normal Mood & Affect: Negative for depressed or tearful Skin no rashes or lesions noted and no wounds MDM MDM MDM Narrative Medical decision making narrative: Differential diagnosis includes meatal/urethral trauma epididymitis orchitis varicocele UTI kidney stone cauda equina syndrome I do not feel the patient has cauda equina syndrome and I cannot correlate this to his back pain. His urinalysis is normal. I do not see anything on physical exam. He is able to urinate. He has not had any loss of rectal tone and no change in neurologic status of the legs. They can be discharged home follow-up with primary care or urology. History & Record Review Discussion w/independent historian: Patient Additional record(s) reviewed:: Prior ED visit Lab Data Attestation: I reviewed the patient's lab results. Labs: Laboratory Results - last 24 hr 08/02/25 21:10 Urine Color Straw Urine Clarity Clear Urine pH 7.0 Ur Specific [place] 1.010 Urine Protein Negative Urine Glucose (UA) Normal Urine Ketones Negative Urine Occult Blood Negative Urine Nitrite Negative Urine Bilirubin Negative Urine Urobilinogen 1 H Ur Leukocyte Esterase Negative Urine RBC 0-5 SEEN Urine WBC 0-5 SEEN Ur Squamous Epith Cells 0-5 SEEN Urine Bacteria 0 SEEN Urine Mucus 0 SEEN Discharge Plan Triage Chief Complaint: Complaint ED Provider: Salvatore Rodgers Dx/Rx/DC Orders Clinical Impression: Dysuria Instructions: ED Dysuria, Uncertain Cause (Adult) Prescriptions: No Action methocarbamol 500 mg tablet 1,000 mg PO 4X/DAY PRN (Reason: Muscle pain/spasm) Qty: 56 0RF amoxicillin-pot clavulanate 875-125 mg tablet 1 tab PO BID allopurinol 100 mg tablet 100 mg PO BID naproxen 500 mg tablet,delayed release (DR/EC) 500 mg PO BID Primary Care Provider: Jaziel West Referrals: Jaziel West DO [Primary Care Provider, Internal Medicine] - As soon as possible Referral Note: if unable to see urology Alphonso Garcia MD [Med Staff - Active Staff, Urology] - As soon as possible Print Language: Estonian Disposition Disposition: Home, Self Care Discharge Date/Time: 08/02/25 23:13
== END 2025-08-02 23:13 | disposition home or self-care (01) ==
PROVIDERS: Emergency Provider Emergency Medicine; PCP Family Medicine; Visit Provider Emergency Medicine
DX: R30.0 Dysuria (principal); Z87.891 Personal history of nicotine dependence
CPT/HCPCS: 81001; 99282